=== PATIENT | female | born 2000 | race Caucasian/White ===

== ENCOUNTER 2025-03-04 22:11 | Inpatient (IN) | payer OTHER, MEDICAID, SELFPAY ==
[2025-03-04 22:18] VITALS: BP 131/73; PULSE 59; RESP 18; TEMP 36.4; O2SAT 98; BMI 46.5
[2025-03-04 22:29] VITALS: BP 133/74; PULSE 62; RESP 17; TEMP 36.6; O2SAT 100; BMI 46.6
--- NOTE | 2025-03-04 23:15 | ED.GENADULT ---
HPI - General Adult General Chief complaint: Psychiatric Symptoms Stated complaint: SI Time Seen by Provider: 03/04/25 22:29 Source: patient Limitations: no limitations History of Present Illness ED Provider: Amanda Clay PA-C HPI narrative: 25-year-old female with a history of autism spectrum disorder, ADHD, OCD, borderline personality disorder, anxiety, questionable bipolar disorder who is amidst further workup, presents with SI and HI. Patient is having transient thoughts of self-harm, she has no specific plan. She is also admitting to homicidal ideation ?toward anybody?. Patient states she just moved from [place], she is having insurance issues, she has had barriers to care, she has not been on her medications for the past 4 days. Denies use of alcohol or illicit substances, she does admit to using marijuana edibles. Related Data Home Medications ?Medication ?Instructions ?Recorded ?Confirmed amlodipine 2.5 mg tablet 2.5 mg PO DAILY 03/04/25 03/04/25 fluoxetine 20 mg capsule (Prozac) 20 mg PO DAILY 03/04/25 03/04/25 hydroxyzine pamoate 50 mg capsule 100 mg PO BEDTIME 03/04/25 03/05/25 quetiapine 50 mg tablet (Seroquel) 50 mg PO DAILY 03/04/25 03/04/25 calcium carbonate 500 mg PO TID 03/05/25 03/05/25 ferrous sulfate 325 mg (65 mg 325 mg PO DAILY@0800 03/05/25 03/05/25 iron) tablet mirtazapine 30 mg tablet 60 mg PO BEDTIME 03/05/25 03/05/25 multivitamin 1 tab PO DAILY@0800 03/05/25 03/05/25 norethindrone acetate 1.5 1 tab PO DAILY 03/05/25 03/05/25 mg-ethinyl estradiol 30 mcg tablet (Microgestin) pregabalin 75 mg capsule 75 mg PO BID 03/05/25 03/05/25 Allergies Allergy/AdvReac Type Severity Reaction Status Date / Time NSAIDS (Non-Steroidal Allergy Gastrointestinal Verified 03/04/25 22:38 Anti-Inflamma Upset amoxicillin AdvReac Anaphylaxis Verified 03/04/25 22:38 Penicillins (PCN) AdvReac Anaphylaxis Verified 03/04/25 22:38 Review of Systems Review of Systems: Yes all other systems are reviewed and are negative Constitutional: Constitutional: Denies fatigue and Denies fever(s) Cardiovascular: Cardiovascular: Denies chest pain and Denies dyspnea Respiratory: Respiratory: Denies dyspnea Gastrointestinal: Gastrointestinal: Denies abdominal pain Psychiatric: Psychiatric: Reports homicidal ideation and Reports suicidal ideation Endocrine: Endocrine: Denies fatigue PMF Past Medical History Attestation statement: The following information was validated with the patient. Social History Social History Household Members: Friend(s) Household Members Other:: 2 friends Housing: Apartment Do you presently have visiting nurse or other home services: No Patient Tobacco Use Status: Former Tobacco user Smoked in Last 30 Days: No e-Cigarette/Vaping Use: Never Used Patient Interested in Nicotine Replacement: No Use of substances other than those prescribed or required for medical reasons: Yes Substance Use Type: Marijuana Have you been hit, kicked, punched, or otherwise hurt by someone within the past year? If so, by whom?: No Do you feel safe in your current relationship?: Yes Is there a partner from a previous relationship who is making you feel unsafe now?: No Are you made to feel afraid or neglected: No Advance Directives: No Advance Directives Information Provided: Yes Do you have a plan to hurt others: No Plan Recently lost weight without trying: No Eating poorly because of decreased appetite: No Nutrition Risks: No Nutritional Risk Patient : No : No Poor oral hygiene: No Physical Exam ED Vital Signs: Vital Signs - 24 hr 03/04/25 22:18 03/04/25 22:29 03/05/25 05:55 Temperature 97.5 F 97.9 F Pulse Rate 59 62 Respiratory Rate 18 17 18 Blood Pressure 131/73 133/74 Pulse Oximetry 98 100 Oxygen Delivery Method Room Air Room Air Room Air 03/05/25 06:12 Temperature 98.3 F Pulse Rate 67 Respiratory Rate 16 Blood Pressure 107/50 L Pulse Oximetry 100 Oxygen Delivery Method Room Air BMI result Body Mass Index 46.6 Const Other: Alert well-appearing Orientation/consciousness: patient oriented x3 Resp Effort & Inspection: normal respiratory effort Cardio Other: Normal peripheral perfusion Skin Other: Warm dry no rash Neuro General: patient oriented x3, gait normal, no focal motor deficits and CN's II-XI intact bilaterally Psych Other: Cooperative Course Reevaluation(s) Reevaluation #1: Time: 23:31 Date: 03/04/25 Provider: YANIRA Mace Patient in physician observation for psychiatric evaluation.? No acute events reported overnight. No current complaints. VS stable.? Patient is in bed search status/pending CARE team evaluation. Will continue to monitor. Medications Administered Generic Name Dose Route Start Last Admin Trade Name Freq PRN Reason Stop Dose Admin Amlodipine Besylate 2.5 mg 03/05/25 09:00 03/05/25 08:55 Amlodipine Besylate 2.5 Mg Tablet PO 2.5 mg DAILY [facility] Administration Protocol Fluoxetine HCl 20 mg 03/05/25 09:00 03/05/25 08:55 Fluoxetine Hcl 20 Mg Capsule PO 20 mg On Hold: 03/05/25 17:36 DAILY [facility] Administration Comment: Order held by Process Transfer Quetiapine Fumarate 50 mg 03/05/25 09:00 03/05/25 08:56 Quetiapine Fumarate 50 Mg Tablet PO 50 mg DAILY [facility] Administration Discontinued Medications Generic Name Dose Route Start Last Admin Trade Name Freq PRN Reason Stop Dose Admin Acetaminophen 650 mg 03/05/25 10:39 03/05/25 10:49 Acetaminophen 325 Mg Tablet PO 03/05/25 10:40 650 mg ONCE ONE Administration Hydroxyzine HCl 100 mg 03/04/25 23:27 03/04/25 23:47 Hydroxyzine Hcl 50 Mg Tablet PO 03/04/25 23:28 100 mg ONCE ONE Administration Melatonin 9 mg 03/04/25 23:27 03/04/25 23:47 Melatonin 3 Mg Tablet PO 03/04/25 23:28 9 mg ONCE ONE Administration Pregabalin 25 mg 03/05/25 09:00 03/05/25 08:55 Pregabalin 25 Mg Capsule PO 25 mg DAILY [facility] Administration Medical Decision Making Medical Decision Making MDM Narrative: 25-year-old female with a history of autism spectrum disorder, ADHD, OCD, borderline personality disorder, anxiety, questionable bipolar disorder who is amidst further workup, presents with SI and HI. Patient is having transient thoughts of self-harm, she has no specific plan. She is also admitting to homicidal ideation ?toward anybody?. Patient states she just moved from [place], she is having insurance issues, she has had barriers to care, she has not been on her medications for the past 4 days. Denies use of alcohol or illicit substances, she does admit to using marijuana edibles. Problem: Psychiatric illness History: Per patient I have considered the following differential diagnoses: SI, HI, decompensated psychiatric illness, drug/alcohol intoxication Plan: Screening labs including serum ethanol and drug screen we will be obtained, I foresee the patient being a bed search given she requires medication that she is having barriers obtaining for herself, she is symptomatic. We will reach out to the care team. I have independently reviewed the following tests: Labs: No leukocytosis, not anemic, no electrolyte abnormality, ethanol less than 10, drug screen only positive for marijuana Differential Diagnosis Differential Diagnoses: The differential diagnosis associated with the presentation includes See medical decision-making Admission/Observation Consideration of admission/observation: Escalation of care including admission/observation considered Likely inpatient psych Consult Healthcare Provider Management of the patient was discussed with: Behavioral Health Provider Lab Data MDM Lab Attestation statement: I reviewed the patient's lab results. 03/04/25 23:21 03/04/25 23:21 Labs: Lab Results 03/04/25 03/05/25 Range/Units 23:21 00:08 WBC 7.2 (4.8-10.8) X10*3/uL RBC 4.74 (4.20-5.50) X10*6/uL Hgb 13.7 (12.0-16.0) g/dl Hct 41.5 (37.0-47.0) % MCV 87.6 (80.0-98.0) fL MCH 28.9 (27.0-33.0) pg MCHC 33.0 (31.0-35.0) g/dl RDW 13.1 (11.0-16.0) % Plt Count 250 (160-400) X10*3/uL MPV 9.9 (9.4-12.3) fL Immature Gran % (Auto) 0.3 (0.0-0.4) % Neut % (Auto) 47.6 (45-73) % Lymph % (Auto) 45.1 H (20-40) % [place] % (Auto) 6.0 (2-11) % Eos % (Auto) 0.6 (0-4) % Baso % (Auto) 0.4 (0-2) % Lymph # (Auto) 3.2 (1.2-4.9) X10*3/uL [place] # (Auto) 0.4 (0.1-1.2) X10*3/uL Eos # (Auto) 0.0 (0.0-0.4) X10*3/uL Baso # (Auto) 0.0 (0.0-0.2) X10*3/uL Abs Immat Gran (auto) 0.02 (0.00-0.03) X10*3/uL Absolute Neuts (auto) 3.4 (2.0-8.3) x10*3/uL Absolute Nucleated RBC 0.000 (0.0-0.012) X10*3/uL Nucleated RBC % (auto) 0.0 (0.0-0.2) /100WBC Sodium 141 (135-145) mmol/L Potassium 3.5 (3.3-5.1) mmol/L Chloride 109 H (96-108) mmol/L Carbon Dioxide 24 (22-29) mmol/L Anion Gap 12 (12-20) BUN 11 (9-16) mg/dL Creatinine 0.74 (0.5-1.4) mg/dL Estim Creat Clear Calc 182.0 Estimated GFR > 60 Random Glucose 105 (60-115) mg/dL Calcium 8.6 (8.4-10.2) mg/dL Total Bilirubin 0.3 (0.0-1.0) mg/dL AST 26 (5-31) U/L ALT 32 H (0-31) U/L Alkaline Phosphatase 93 (39-117) U/L Total Protein 6.3 L (6.5-8.0) g/dL Albumin 3.9 (3.5-5.0) g/dL Beta HCG, Quant < 2 mIU/mL Urine Color Dark Yellow Urine Appearance Cloudy Urine pH 5.5 (5.0-9.0) Ur Specific [place] >= 1.030 H (1.005-1.025) Urine Protein 30 (1+) H (Neg-Trace) mg/dL Urine Glucose (UA) Negative (Negative) mg/dL Urine Ketones Trace (Negative) mg/dL Urine Blood Negative (Negative) Urine Nitrite Negative (Negative) Ur Leukocyte Esterase Negative (Negative) Urine RBC 0-2 (0-2) /HPF Urine WBC 0-5 (0-5) /HPF Ur Squamous Epith Cells >20 (0-2) /HPF Calcium Oxalate Crystal Present Urine Bacteria 4+ (None Seen) Hyaline Casts 3-5 (0-2) /LPF Salicylates < 5.0 L (15-30) mg/dL Urine Opiates Screen Not Detected (Not Detect) Ur Buprenorphine Scrn Not Detected (Not Detect) ng/mL Ur Oxycodone Screen Not Detected (Not Detect) ng/mL Urine Methadone Screen Not Detected (Not Detect) ng/mL Urine Fentanyl Screen Not Detected (Not Detect) Acetaminophen 15 (<30) mcg/mL Ur Barbiturates Screen Not Detected (Not Detect) Ur Phencyclidine Scrn Not Detected (Not Detect) Ur Amphetamines Screen Not Detected (Not Detect) U Benzodiazepines Scrn Not Detected (Not Detect) Urine Cocaine Screen Not Detected (Not Detect) U Marijuana (THC) Screen POSITIVE H (Not Detect) Ethyl Alcohol < 10 mg/dL Discharge Plan Discharge Clinical Impression: Suicidal behavior Patient Disposition: Admitted As Inpatient Interventions: Admission Worksheet (ED) Last Done: 03/05/25 16:48 Discharge Date/Time: 03/05/25 16:55
[2025-03-04 23:31] LABS: MANUAL DIFF FLAG NO
[2025-03-04 23:32] LABS: Hematocrit 41.5 % (37.0-47.0); Hemoglobin 13.7 g/dl (12.0-16.0); Imm Gran Abs Auto 0.02 X10*3/uL (0.00-0.03); Imm Gran Pct Auto 0.3 % (0.0-0.4); Lymphocytes Absolute Auto 3.2 X10*3/uL (1.2-4.9); Mean Corpuscular HGB Conc 33.0 g/dl (31.0-35.0); Mean Corpuscular Hemoglobin 28.9 pg (27.0-33.0); Mean Corpuscular Volume 87.6 fL (80.0-98.0); NRBC Abs Auto 0.000 X10*3/uL (0.0-0.012); NRBC Pct Auto 0.0 /100WBC (0.0-0.2); Platelet Count 250 X10*3/uL (160-400); Red Blood Count 4.74 X10*6/uL (4.20-5.50); White Blood Count 7.2 X10*3/uL (4.8-10.8)
[2025-03-04 23:48] LABS: Albumin Level 3.9 g/dL (3.5-5.0); Alkaline Phosphatase 93 U/L (39-117); Anion Gap 12 (12-20); Aspartate Amino Transferase 26 U/L (5-31); Blood Urea Nitrogen 11 mg/dL (9-16); Calcium 8.6 mg/dL (8.4-10.2); Carbon Dioxide 24 mmol/L (22-29); Chloride 109 mmol/L (96-108); Creatinine Clr Calc Pharmacy 182.0; Estimated Glomerular Filt Rate > 60; Potassium 3.5 mmol/L (3.3-5.1); Sodium 141 mmol/L (135-145); Total Protein 6.3 g/dL (6.5-8.0)
[2025-03-04 23:49] LABS: Acetaminophen LAB 15 mcg/mL (<30); Salicylate < 5.0 mg/dL (15-30)
--- NOTE | 2025-03-04 23:49 | PC.NURSE ---
Per pt, she recently moved here from [place] and has had difficulty refilling her medications. Reports she hasn't been taking them for quite some time. She reports her roommates have noticed differences in her behavior; such as thinking there are cameras in the house, increased agitation, increased impulsively and an increase in her OCD sx. Patient reports since stopping her medications she's been experiencing highs and lows that she'll have uncontrollable laughing fits that end in tears with no apparent trigger. Tonight, patient reports she was in the kitchen with her roommates when she began to experience passive SI after seeing kitchen knives and feeling unsafe around them. Reports HX of SH such as biting her hands/picking her skin and describes these behaviors as her go-to coping skill . Endorses passive SI, no plan/intent. Feels safe on the unit. Endorses HI towards anyone , but states I don't want to hurt anybody. Denies current AVH, but states before arriving she experienced +AH of a phone ringing or hearing my fathers voice. Changed into appropriate attire. [address] checks in [address].
[2025-03-04 23:59] LABS: Alanine Aminotransferase 32 U/L (0-31)
[2025-03-05 00:32] LABS: Appearance Urine Cloudy; Glucose Urine UA Negative (Negative); PH 5.5 (5.0-9.0); Specific Gravity - Urine >= 1.030 (1.005-1.025); UMIC TRIGGER UACC YES
[2025-03-05 00:46] LABS: Cannabinoid Screen Urine POSITIVE (Not Detect)
[2025-03-05 05:55] VITALS: RESP 18
[2025-03-05 06:12] VITALS: BP 107/50; PULSE 67; RESP 16; TEMP 36.8; O2SAT 100
--- NOTE | 2025-03-05 07:19 | PC.NURSE ---
Assumed care of patient at 0645, patient appears to be in no apparent distress this am, resting in her room, calm and cooperative. Continue plan of care for CARE team assessment
--- NOTE | 2025-03-05 09:03 | MHC.CARE ---
Pt meets the criteria for IPLOC and will be a bed search. Section 12a in chart. ED provider in agreement with disposition.
--- NOTE | 2025-03-05 09:12 | MHC.CARE ---
T/W emailed financial services to meet with Pt.
--- NOTE | 2025-03-05 12:09 | PHA.MEDREC ---
Pharmacy Consult ? Medication Reconciliation Pharmacy has reviewed the medication reconciliation done by RN. Several discrepancies noticed. This [facility] [place] and [facility] in [place]. Patient is inbetween insurances and this is why claims are not showing. Also spoke to patient and patient was able to name medications, doses and frequencies with ease. Patient also mentioned she is on a multivitamin with iron and calcium TID. Patient did say its been roughly 1-3 weeks since shes last taken her medications due to lack of refills.
[2025-03-05 17:59] VITALS: BMI 46.5
[2025-03-05 18:00] VITALS: BP 113/68; PULSE 61; TEMP 36.6; O2SAT 99
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
[2025-03-05 19:56] VITALS: BP 131/98; PULSE 89; RESP 16; TEMP 36.6; O2SAT 99
[2025-03-05 20:00] VITALS: BP 131/98; PULSE 89; RESP 16; TEMP 36.6; O2SAT 99
--- NOTE | 2025-03-06 03:56 | PC.NURSE ---
Medications: Patient and RN discussed, the following, 1) Offered PM Flu Vaccine pt refused would like it in am. 2) Calcium added. MD ordered for TID 0900, 1500, 2100----Pt states Calcium needs to be taken 3 hours from the Fe which is scheduled for 0900. Pt requesting Ca be rescheduled TID at 12p, 1500 and 1800. 3)Pt had Mirtazapine 60mg ordered than put on Hold. Spoke to provider as pt states she cannot go without this medication. MD needed confirmation on dose, pt reports her psychiatrist is one of few that can dose her at 60mg and she has slowly tapered up and has been tolerating for 6 months. MD made aware and ordered. Pt received dose. 4) seroquell was changed from AM to PM dose. Estradiol is ordered, this is a NF in pharmacy. Spoke with pt about having medication brought in and states she will ask her roommate to do so. IN ADDITION TO THIS PT STATES SHE ALSO TAKE spironolactone 25MG IN AM WELL for PCOS.
[2025-03-06 08:00] VITALS: BP 131/72; PULSE 78; TEMP 36.4; TEMP 37.1; O2SAT 100
[2025-03-06 08:30] LABS: Alanine Aminotransferase 30 U/L (0-31); Albumin Level 4.2 g/dL (3.5-5.0); Alkaline Phosphatase 99 U/L (39-117); Anion Gap 12 (12-20); Aspartate Amino Transferase 24 U/L (5-31); Blood Urea Nitrogen 10 mg/dL (9-16); Calcium 9.2 mg/dL (8.4-10.2); Carbon Dioxide 25 mmol/L (22-29); Chloride 107 mmol/L (96-108); Cholesterol 172 mg/dL (<200); Creatinine Clr Calc Pharmacy 197.7; Estimated Glomerular Filt Rate > 60; HDL Cholesterol 52 mg/dL (>40); Potassium 3.5 mmol/L (3.3-5.1); Sodium 140 mmol/L (135-145); Total Protein 6.7 g/dL (6.5-8.0); Triglycerides 105 mg/dL (<150)
--- NOTE | 2025-03-06 08:30 | HO.PM.IMCN ---
History of Present Illness Data of Consult Service Date: 03/06/25 Primary Care Provider: None Physician HPI Reason for consult: Medical consult 25-year-old female with a past medical history of hypertension, fibromyalgia, autism spectrum disorder, ADHD, OCD, borderline personality disorder, anxiety, and possible bipolar disorder presents with suicidal and homicidal ideation. Initial workup with no leukocytosis, no anemia, no electrolyte imbalances and drug screen positive for marijuana. Urine negative for infection. She was evaluated by CARE team and found to be appropriate for psychiatric admission for treatment and HI. Patient had recent bypass surgery in September, lost 115 lb. On exam she is requesting Flexeril for her fibromyalgia pain. Her endocrinology appointment is pending. She otherwise has no concerns Review of Systems Review of Systems: Denies any shortness of breath, chest pain, headaches, dysuria, abdominal pain or discomfort, nausea, vomiting or diarrhea. Denies fever or chills. PMFSH Social History Household Members: Friend(s) Household Members Other:: 2 friends Housing: Apartment Do you presently have visiting nurse or other home services: No Patient Tobacco Use Status: Former Tobacco user Smoked in Last 30 Days: No e-Cigarette/Vaping Use: Never Used Patient Interested in Nicotine Replacement: No Use of substances other than those prescribed or required for medical reasons: Yes Substance Use Type: Marijuana Currently Displaying Signs/Symptoms of Drug Intoxication Withdrawal: No Have you been hit, kicked, punched, or otherwise hurt by someone within the past year? If so, by whom?: No Do you feel safe in your current relationship?: Yes Is there a partner from a previous relationship who is making you feel unsafe now?: No Are you made to feel afraid or neglected: No Advance Directives: No Advance Directives Information Provided: Yes Do you have thoughts of harming others: None Do you have a plan to hurt others: No Plan Recently lost weight without trying: No Eating poorly because of decreased appetite: No Nutrition Risks: No Nutritional Risk Patient : No : No Poor oral hygiene: No Meds Allergies Allergy/AdvReac Type Severity Reaction Status Date / Time NSAIDS (Non-Steroidal Allergy Gastrointestinal Verified 03/04/25 22:38 Anti-Inflamma Upset tree nut Allergy Anaphylaxis Verified 03/06/25 13:49 amoxicillin AdvReac Anaphylaxis Verified 03/04/25 22:38 lamotrigine AdvReac Anaphylaxis Verified 03/06/25 13:49 lithium AdvReac Anaphylaxis Verified 03/06/25 13:49 Penicillins (PCN) AdvReac Anaphylaxis Verified 03/04/25 22:38 Active Medications: Current Medications Acetaminophen (Acetaminophen 325 Mg Tablet) 650 mg PO Q6H PRN PRN Reason: Headache/Pain, Scale 1-10 [place] Hydroxide/Mg Hydroxide (Magnesium Hydrox/Alum Hydrox 30 Ml Oral.Susp) 30 ml PO Q6H PRN PRN Reason: Heartburn/Nausea Amlodipine Besylate (Amlodipine Besylate 2.5 Mg Tablet) 2.5 mg PO DAILY [facility]; Protocol Last Admin: 03/05/25 08:55 Dose: 2.5 mg Calcium Carbonate (Calcium Oyster Shell Elemental 500 Mg Tablet) 500 mg PO TID [facility] Last Admin: 03/05/25 22:16 Dose: Not Given Ferrous Sulfate (Ferrous Sulfate 324 Mg Tablet.) 324 mg PO DAILY [facility] Fluoxetine HCl (Fluoxetine Hcl 20 Mg Capsule) 20 mg PO DAILY [facility] On Hold: 03/05/25 17:36 Comment: Order held by Process Transfer Last Admin: 03/05/25 08:55 Dose: 20 mg Hydroxyzine HCl (Hydroxyzine Hcl 50 Mg Tablet) 100 mg PO BEDTIME [facility] Last Admin: 03/05/25 20:40 Dose: 100 mg Magnesium Hydroxide (Milk Of Magnesia 30 Ml Oral.Susp) 30 ml PO DAILY PRN PRN Reason: Constipation Melatonin (Melatonin 3 Mg Tablet) 9 mg PO BEDTIME [facility] Last Admin: 03/05/25 21:20 Dose: 9 mg Mirtazapine (Mirtazapine 30 Mg Tablet) 60 mg PO BEDTIME [facility] On Hold: 03/05/25 21:00 Comment: Order held by Process Transfer Mirtazapine (Mirtazapine 30 Mg Tablet) 60 mg PO BEDTIME [facility] Last Admin: 03/05/25 21:21 Dose: 60 mg Multivitamins/Vitamin C (Multivitamin Tablet) 1 tab PO DAILY [facility] Nicotine (Nicotine 21 Mg Patch.Td24) 21 mg TRANSDERMA DAILY PRN PRN Reason: smoking cessation Nicotine Polacrilex (Nicotine Polacrilex 2 Mg Gum) 4 mg BUCCAL Q2H PRN PRN Reason: Nicotine Cravings Non-Formulary Medication (Norethindrone Ac-Eth Estradiol [Microgestin 1.5 (21)]) 1 tab PO DAILY [facility] Olanzapine (Olanzapine 5 Mg Tablet) 5 mg PO TID PRN PRN Reason: agitation Pregabalin (Pregabalin 25 Mg Capsule) 75 mg PO BID [facility] Last Admin: 03/05/25 20:41 Dose: 75 mg Quetiapine Fumarate (Quetiapine Fumarate 50 Mg Tablet) 50 mg PO BEDTIME [facility] Last Admin: 03/05/25 21:22 Dose: 50 mg Trazodone HCl (Trazodone Hcl 50 Mg Tablet) 50 mg PO BEDTIME MRX1 PRN PRN Reason: Insomnia Home Medications ?Medication ?Instructions ?Recorded ?Confirmed ?Last Taken ?Type amlodipine 2.5 mg tablet 2.5 mg PO DAILY 03/04/25 03/04/25 3 Weeks Ago History ~02/12/25 fluoxetine 20 mg capsule (Prozac) 20 mg PO DAILY 03/04/25 03/04/25 3 Weeks Ago History ~02/12/25 hydroxyzine pamoate 50 mg capsule 100 mg PO BEDTIME 03/04/25 03/05/25 3 Weeks Ago History ~02/12/25 quetiapine 50 mg tablet (Seroquel) 50 mg PO DAILY 03/04/25 03/04/25 3 Weeks Ago History ~02/12/25 calcium carbonate 500 mg PO TID 03/05/25 03/05/25 3 Weeks Ago History ~02/12/25 ferrous sulfate 325 mg (65 mg 325 mg PO DAILY@0800 03/05/25 03/05/25 3 Weeks Ago History iron) tablet ~02/12/25 mirtazapine 30 mg tablet 60 mg PO BEDTIME 03/05/25 03/05/25 3 Weeks Ago History ~02/12/25 multivitamin 1 tab PO DAILY@0800 03/05/25 03/05/25 3 Weeks Ago History ~02/12/25 norethindrone acetate 1.5 1 tab PO DAILY 03/05/25 03/05/25 3 Weeks Ago History mg-ethinyl estradiol 30 mcg tablet ~02/12/25 (Microgestin) pregabalin 75 mg capsule 75 mg PO BID 03/05/25 03/05/25 3 Weeks Ago History ~02/12/25 Physical Exam Vital Signs and Narrative: Vital Signs: Last Vital Signs Temp 98 F 03/05/25 20:00 Pulse 89 03/05/25 20:00 Resp 16 03/05/25 20:00 BP 131/98 H 03/05/25 20:00 Pulse Ox 99 03/05/25 20:00 O2 Del Method Room Air 03/05/25 20:00 BMI result Body Mass Index 46.5 Alert and oriented X3, calm and cooperative. Answers questions. Neuro: CN II-X11 intact, no deficits, visual acuity intact EYES: PERRLA, EOM intact ENT: Hearing intact, MMM Cardiac: S1 S2 RRR, No ectopy Pulmonary: Lungs clear to auscultation, No increased WOB. Abdominal: BS active in all 4 quadrants, no guarding or tenderness MSK: Strength 5/5 upper and lower extremities : Deferred Extremities: No edema in lower extremities Psych: Mood stable, Quiet and cooperative. Skin: Warm and dry, Intact Results Labs 03/04/25 23:21 03/06/25 07:59 Labs: Laboratory Results - last 24 hr 03/06/25 07:59 Estimat Average Glucose 97 Hemoglobin A1c % 5.0 Assessment and Plan (1) HTN (hypertension): Status: Acute Plan 25-year-old female with a past medical history listed below presents to ED with suicidal and homicidal ideation. Patient was off of her meds for 4 days, now admitted for stabilization. ADHD/OCD/borderline personality disorder/autism spectrum disorder/anxiety/? bipolar disorder/SI/HI Treatment per psychiatric team Hypertension Continue amlodipine Fibromyalgia Patient takes Lyrica b.i.d. Flexeril t.i.d. p.r.n. Has an upcoming appointment with web design intern Recent gastric bypass surgery in September Labs within normal limits, continue multivitamin vitamin-C and calcium carbonate Thank you for allowing me to participate in the care of this patient. Will follow with you, please notify medical provider with any changes in condition or concerns.
[2025-03-06 09:03] VITALS: BP 138/72
[2025-03-06] MEDS: Calcium Oyster Shell Elemental 500 MG TABLET PO ×3 (09:03→22:45)
[2025-03-06] MEDS: Ferrous Sulfate 324 MG TABLET.DR PO (09:03)
--- NOTE | 2025-03-06 09:48 | HO.PSYADMNOT ---
HPI Date of Service: 03/06/25 Chief Complaint: SI/HI Sources of Information: patient interviewed, chart reviewed and crisis/core team assessment reviewed Additional Sources of Information: Met with pt 130pm HPI Subjective Notes: Gupta Warning and Conditional Voluntary Healthcare Proxy: No Guardianship: No Medical Problems Affecting Mental Status: No Narrative: 25 yo female, self presented to [facility] for re-establishment of psychotropic medications. Pt reports being without meds for 1.5 weeks. Reports paranoia, insomnia, irrational decision making and thoughts of self harm along with SI-tells CARE team of thoughts to slice her stomach. Also reports lability of mood-episodes of hysterical laughter/crying. HI+ without specific person-toward anyone. Hx of diagnosis of ADHD, ASD, Borderline Personality Disorder, Bipolar Disorder. Post neuropsychiatric exam in 2021 reports diagnosis of antisocial personality disorder/schizotypal personality disorder. 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 Pt reports she has been taking Mirtazapine 60 mg, Fluoxetine 20 mg and Quetiapine 50 mg with ongoing manic cycling. She reports sx of ADHD, intrusive OCD sx, excoriation/skin picking sx are all present when this regime is ongoing. States she moved to [place] at the end of December and has been attempting to secure insurance which has been a slowed process. She began to feel changes, however thought it may be her response to the seasonal changes. Symptoms increased she became more impulsive with tasks and purchases, she dyed her hair black, had changes in sleep (was sleeping 11pm-10am, now 4am-8am), poor appetite, poor self care, vivid intrusive thoughts to harm herself, bite herself, to cut her stomach, these becoming so prominent she would not allow herself in the kitchen as she worried she would stab herself. 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, diagnosed with borderline personality age 15, bipolar disorder age 18 Hx of residential treatment age 11-13- 6 months, post argument with mom, after a 3 month in pt, then 2 years of special schooling while living at home Hx of suicide attempts in youth, age 12 attempt to hang herself Hx of tylenol OD-reports no medical care post OD Hx of attempted hanging OP: None currently Trials: Risperdal, Klonopin, Wellbutrin, Ativan, Sertraline, Buspirone, Naltrexone, Lamictal, [place], Trileptal, Intuniv Medical Evaluation Reviewed: Yes [facility] Medical History (Updated 03/06/25 @ 20:11 by Dawn Mccabe, DIANA) Borderline personality disorder Excoriation (skin-picking) disorder Autism ADHD OCD (obsessive compulsive disorder) Bipolar disorder PTSD (post-traumatic stress disorder) Narrative: Fibromyalgia Narrative: Gastric Bypass Family History: schizophrenia, OCD, bipolar disorder, depression Social History: Raised in [place] with biological parents Father when pt was age 9. Pt lived with her mother and uncle. Only child. High school graduate Receives social security survivor benefits Has been homeless prior to moving to [place] Substance History: toxicology positive for cannabis Trauma History: loss of father Diagnostics Vital Signs (24Hr): Vital Signs - 24 hr 03/05/25 18:00 03/05/25 19:56 03/05/25 20:00 Temperature 97.8 F 98 F 98 F Pulse Rate 61 89 89 Respiratory Rate 16 16 Blood Pressure 113/68 131/98 H 131/98 H Pulse Oximetry 99 99 99 Oxygen Delivery Method Room Air Room Air Room Air 03/06/25 09:03 Temperature Pulse Rate Respiratory Rate Blood Pressure 138/72 Pulse Oximetry Oxygen Delivery Method BMI result Body Mass Index 46.5 Labs 03/04/25 23:21 03/06/25 07:59 Labs: Laboratory Results - last 48 hr 03/04/25 03/05/25 03/06/25 23:21 00:08 07:59 WBC 7.2 RBC 4.74 Hgb 13.7 Hct 41.5 MCV 87.6 MCH 28.9 MCHC 33.0 RDW 13.1 Plt Count 250 MPV 9.9 Immature Gran % (Auto) 0.3 Neut % (Auto) 47.6 Lymph % (Auto) 45.1 H Harding % (Auto) 6.0 Eos % (Auto) 0.6 Baso % (Auto) 0.4 Lymph # (Auto) 3.2 [place] # (Auto) 0.4 Eos # (Auto) 0.0 Baso # (Auto) 0.0 Abs Immat Gran (auto) 0.02 Absolute Neuts (auto) 3.4 Absolute Nucleated RBC 0.000 Nucleated RBC % (auto) 0.0 Sodium 141 140 Potassium 3.5 3.5 Chloride 109 H 107 Carbon Dioxide 24 25 Anion Gap 12 12 BUN 11 10 Creatinine 0.74 0.68 Estim Creat Clear Calc 182.0 197.7 Estimated GFR > 60 > 60 Random Glucose 105 98 Estimat Average Glucose 97 Hemoglobin A1c % 5.0 Calcium 8.6 9.2 D Total Bilirubin 0.3 0.6 AST 26 24 ALT 32 H 30 Alkaline Phosphatase 93 99 Total Protein 6.3 L 6.7 Albumin 3.9 4.2 Triglycerides 105 Cholesterol 172 LDL Cholesterol, Calc 99 HDL Cholesterol 52 TSH 2.71 Beta HCG, Quant < 2 Urine Color Dark Yellow Urine Appearance Cloudy Urine pH 5.5 Ur Specific [place] >= 1.030 H Urine Protein 30 (1+) H Urine Glucose (UA) Negative Urine Ketones Trace Urine Blood Negative Urine Nitrite Negative Ur Leukocyte Esterase Negative Urine RBC 0-2 Urine WBC 0-5 Ur Squamous Epith Cells >20 Calcium Oxalate Crystal Present Urine Bacteria 4+ Hyaline Casts 3-5 Salicylates < 5.0 L Urine Opiates Screen Not Detected Ur Buprenorphine Scrn Not Detected Ur Oxycodone Screen Not Detected Urine Methadone Screen Not Detected Urine Fentanyl Screen Not Detected Acetaminophen 15 Ur Barbiturates Screen Not Detected Ur Phencyclidine Scrn Not Detected Ur Amphetamines Screen Not Detected U Benzodiazepines Scrn Not Detected Urine Cocaine Screen Not Detected U Marijuana (THC) Screen POSITIVE H Ethyl Alcohol < 10 Meds/Allergies Meds Home Medications ?Medication ?Instructions ?Recorded ?Confirmed ?Type amlodipine 2.5 mg tablet 2.5 mg PO DAILY 03/04/25 03/04/25 History fluoxetine 20 mg capsule (Prozac) 20 mg PO DAILY 03/04/25 03/04/25 History hydroxyzine pamoate 50 mg capsule 100 mg PO BEDTIME 03/04/25 03/05/25 History quetiapine 50 mg tablet (Seroquel) 50 mg PO DAILY 03/04/25 03/04/25 History calcium carbonate 500 mg PO TID 03/05/25 03/05/25 History ferrous sulfate 325 mg (65 mg 325 mg PO DAILY@0800 03/05/25 03/05/25 History iron) tablet mirtazapine 30 mg tablet 60 mg PO BEDTIME 03/05/25 03/05/25 History multivitamin 1 tab PO DAILY@0800 03/05/25 03/05/25 History norethindrone acetate 1.5 1 tab PO DAILY 03/05/25 03/05/25 History mg-ethinyl estradiol 30 mcg tablet (Microgestin) pregabalin 75 mg capsule 75 mg PO BID 03/05/25 03/05/25 History Allergies Allergies Allergy/AdvReac Type Severity Reaction Status Date / Time NSAIDS (Non-Steroidal Allergy Gastrointestinal Verified 03/04/25 22:38 Anti-Inflamma Upset tree nut Allergy Anaphylaxis Verified 03/06/25 13:49 amoxicillin AdvReac Anaphylaxis Verified 03/04/25 22:38 lamotrigine AdvReac Anaphylaxis Verified 03/06/25 13:49 lithium AdvReac Anaphylaxis Verified 03/06/25 13:49 Penicillins (PCN) AdvReac Anaphylaxis Verified 03/04/25 22:38 Assessment & Plan Assessment & Plan (1) PTSD (post-traumatic stress disorder): Status: Acute Code(s): F43.10 - Post-traumatic stress disorder, unspecified (2) Bipolar disorder: Status: Acute Code(s): F31.9 - Bipolar disorder, unspecified (3) OCD (obsessive compulsive disorder): Status: Acute Code(s): F42.9 - Obsessive-compulsive disorder, unspecified (4) ADHD: Status: Acute Code(s): F90.9 - Attention-deficit hyperactivity disorder, unspecified type (5) Autism: Status: Acute Code(s): F84.0 - Autistic disorder (6) Excoriation (skin-picking) disorder: Status: Acute Code(s): F42.4 - Excoriation (skin-picking) disorder (7) Borderline personality disorder: Status: Acute Code(s): F60.3 - Borderline personality disorder Plan 25 yo female, self presented to [facility] for re-establishment of psychotropic medications. Pt reports being without meds for 1.5 weeks. Reports paranoia, insomnia, irrational decision making and thoughts of self harm along with SI-tells CARE team of thoughts to slice her stomach. Also reports lability of mood-episodes of hysterical laughter/crying. HI+ without specific person-toward anyone. Hx of diagnosis of ADHD, ASD, Borderline Personality Disorder, Bipolar Disorder. Post neuropsychiatric exam in 2021 reports diagnosis of antisocial personality disorder/schizotypal personality disorder. 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 Pt reports she has been taking Mirtazapine 60 mg, Fluoxetine 20 mg and Quetiapine 50 mg with ongoing manic cycling. She reports sx of ADHD, intrusive OCD sx, excoriation/skin picking sx are all present when this regime is ongoing. States she moved to [place] at the end of December and has been attempting to secure insurance which has been a slowed process. She began to feel changes, however thought it may be her response to the seasonal changes. Symptoms increased she became more impulsive with tasks and purchases, she dyed her hair black, had changes in sleep (was sleeping 11pm-10am, now 4am-8am), poor appetite, poor self care, vivid intrusive thoughts to harm herself, bite herself, to cut her stomach, these becoming so prominent she would not allow herself in the kitchen as she worried she would stab herself. Plan: Admit, CV, 15 minute checks Encourage milieu participation Diagnostics as needed Collateral contact Continue current regime Olanzapine 5 mg HS trial for mood, excoriation sx Discharge planning Patient educated on: medication risk/benefits and therapeutic strategies Reason for continued inpatient stay Substantial Risk for: harm to self and rapid decompensation Statement Statement: I have reviewed the history and physical and performed a pertinent examination on my patient. No changes have occurred unless specified. If the History and Physical was not performed prior to admission, the Hospitalist's service will be consulted for completing the admission physical. Time Spent With Patient Time: Total time managing care of this patient today ____ minutes.
[2025-03-06 19:13] VITALS: BP 123/58; PULSE 76; RESP 16; TEMP 36.4; O2SAT 100
[2025-03-07 08:00] VITALS: BP 119/69; PULSE 60; RESP 16; TEMP 36.3; O2SAT 99
[2025-03-07 08:53] VITALS: BP 119/69
[2025-03-07] MEDS: Ferrous Sulfate 324 MG TABLET.DR PO (08:53)
--- NOTE | 2025-03-07 10:58 | HO.PSYCHPN ---
Subjective Subjective Date of Service: 03/07/25 Reason For Visit: SI/HI Subjective Notes: Conditional Voluntary Healthcare Proxy: No Guardianship: No Medical Problems Affecting Mental Status: No Interim History: Tolerating Olanzapine. Review of medicines, times and changes made in vitamin timing of dosages. Visable in milieu and with select peers. Discussed discharge for the end of the week. Denies SI,HI,AH,VH. No sx of acute monae or psychosis. Medication Compliance: Yes Side effects from medications: No Attending Groups: Yes Review of Systems Acute medical concerns: No Medical Review of Systems: unchanged Review of Systems Review of Systems will have a flu shot today Yes all other systems are reviewed and are negative Mental Status Exam Mental Status Exam Patient Appearance: Appropriate Patient Orientation: Person, Place, Time and Situation Level of Consciousness: Alert Patient Behavior: Appropriate, Talkative, Cooperative and Good Eye Contact Mood Description: Apprehensive Affect Description: Apprehensive Patient Cognition Impaired: No Ability to Follow Directions: Good Speech Pattern: Spontaneous Speech Memory Description: Intact Hallucinations: None Delusions: Not Present Thought Process: Intact and Goal Oriented Thought Content: positive for Intact, positive for Goal Oriented and positive for Suicidal Ideation (denies) Depressive Symptoms: Thoughts of /Suicide (denies) Judgement: Good Diagnostics Vital Signs (24Hr): Vital Signs - 24 hr 03/06/25 19:13 03/07/25 08:00 03/07/25 08:53 Temperature 97.5 F 97.4 F Pulse Rate 76 60 Respiratory Rate 16 16 Blood Pressure 123/58 L 119/69 119/69 Pulse Oximetry 100 99 Oxygen Delivery Method Room Air Room Air BMI result Body Mass Index 46.5 Labs 03/04/25 23:21 03/06/25 07:59 Labs: Laboratory Results - last 48 hr 03/06/25 07:59 Sodium 140 Potassium 3.5 Chloride 107 Carbon Dioxide 25 Anion Gap 12 BUN 10 Creatinine 0.68 Estim Creat Clear Calc 197.7 Estimated GFR > 60 Random Glucose 98 Estimat Average Glucose 97 Hemoglobin A1c % 5.0 Calcium 9.2 D Total Bilirubin 0.6 AST 24 ALT 30 Alkaline Phosphatase 99 Total Protein 6.7 Albumin 4.2 Triglycerides 105 Cholesterol 172 LDL Cholesterol, Calc 99 HDL Cholesterol 52 TSH 2.71 Medications Medications Current Medications Acetaminophen (Acetaminophen 325 Mg Tablet) 650 mg PO Q6H PRN PRN Reason: Headache/Pain, Scale 1-10 Last Admin: 03/06/25 09:04 Dose: 650 mg Al Hydroxide/Mg Hydroxide (Magnesium Hydrox/Alum Hydrox 30 Ml Oral.Susp) 30 ml PO Q6H PRN PRN Reason: Heartburn/Nausea Amlodipine Besylate (Amlodipine Besylate 2.5 Mg Tablet) 2.5 mg PO DAILY [facility]; Protocol Last Admin: 03/07/25 08:53 Dose: 2.5 mg Calcium Carbonate (Calcium Oyster Shell Elemental 500 Mg Tablet) 500 mg PO TID [facility] Last Admin: 03/06/25 22:45 Dose: 500 mg Ferrous Sulfate (Ferrous Sulfate 324 Mg Tablet.Dr) 324 mg PO DAILY [facility] Last Admin: 03/07/25 08:53 Dose: 324 mg Fluoxetine HCl (Fluoxetine Hcl 20 Mg Capsule) 20 mg PO DAILY [facility] On Hold: 03/05/25 17:36 Comment: Order held by Process Transfer Last Admin: 03/05/25 08:55 Dose: 20 mg Hydroxyzine HCl (Hydroxyzine Hcl 50 Mg Tablet) 100 mg PO BEDTIME [facility] Last Admin: 03/06/25 22:44 Dose: 100 mg Magnesium Hydroxide (Milk Of Magnesia 30 Ml Oral.Susp) 30 ml PO DAILY PRN PRN Reason: Constipation Melatonin (Melatonin 3 Mg Tablet) 9 mg PO BEDTIME [facility] Last Admin: 03/06/25 22:44 Dose: 9 mg Mirtazapine (Mirtazapine 30 Mg Tablet) 60 mg PO BEDTIME [facility] Last Admin: 03/06/25 22:46 Dose: 60 mg Multivitamins/Vitamin C (Multivitamin Tablet) 1 tab PO DAILY [facility] Last Admin: 03/07/25 08:53 Dose: 1 tab Nicotine (Nicotine 21 Mg Patch.Td24) 21 mg TRANSDERMA DAILY PRN PRN Reason: smoking cessation Nicotine Polacrilex (Nicotine Polacrilex 2 Mg Gum) 4 mg BUCCAL Q2H PRN PRN Reason: Nicotine Cravings Non-Formulary Medication (Norethindrone Ac-Eth Estradiol [Microgestin 1.09/30 (21)]) 1 tab PO DAILY [facility] Olanzapine (Olanzapine 5 Mg Tablet) 5 mg PO TID PRN PRN Reason: agitation Olanzapine (Olanzapine 5 Mg Tablet) 5 mg PO BEDTIME [facility] Last Admin: 03/06/25 22:45 Dose: 5 mg Pregabalin (Pregabalin 25 Mg Capsule) 75 mg PO BID [facility] Last Admin: 03/07/25 08:52 Dose: 75 mg Quetiapine Fumarate (Quetiapine Fumarate 50 Mg Tablet) 50 mg PO BEDTIME [facility] Last Admin: 03/06/25 22:45 Dose: 50 mg Trazodone HCl (Trazodone Hcl 50 Mg Tablet) 50 mg PO BEDTIME MRX1 PRN PRN Reason: Insomnia Allergies Allergies Allergy/AdvReac Type Severity Reaction Status Date / Time NSAIDS (Non-Steroidal Allergy Gastrointestinal Verified 03/04/25 22:38 Anti-Inflamma Upset tree nut Allergy Anaphylaxis Verified 03/06/25 13:49 amoxicillin AdvReac Anaphylaxis Verified 03/04/25 22:38 lamotrigine AdvReac Anaphylaxis Verified 03/06/25 13:49 lithium AdvReac Anaphylaxis Verified 03/06/25 13:49 Penicillins (PCN) AdvReac Anaphylaxis Verified 03/04/25 22:38 Assessment & Plan Assessment & Plan (1) PTSD (post-traumatic stress disorder): Status: Acute Code(s): F43.10 - Post-traumatic stress disorder, unspecified (2) Bipolar disorder: Status: Acute Code(s): F31.9 - Bipolar disorder, unspecified (3) OCD (obsessive compulsive disorder): Status: Acute Code(s): F42.9 - Obsessive-compulsive disorder, unspecified (4) ADHD: Status: Acute Code(s): F90.9 - Attention-deficit hyperactivity disorder, unspecified type (5) Autism: Status: Acute Code(s): F84.0 - Autistic disorder (6) Excoriation (skin-picking) disorder: Status: Acute Code(s): F42.4 - Excoriation (skin-picking) disorder (7) Borderline personality disorder: Status: Acute Code(s): F60.3 - Borderline personality disorder Plan 25 yo female, self presented to [facility] for re-establishment of psychotropic medications. Pt reports being without meds for 1.5 weeks. Reports paranoia, insomnia, irrational decision making and thoughts of self harm along with SI-tells CARE team of thoughts to slice her stomach. Also reports lability of mood-episodes of hysterical laughter/crying. HI+ without specific person-toward anyone. Hx of diagnosis of ADHD, ASD, Borderline Personality Disorder, Bipolar Disorder. Post neuropsychiatric exam in 2021 reports diagnosis of antisocial personality disorder/schizotypal personality disorder. 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 Pt reports she has been taking Mirtazapine 60 mg, Fluoxetine 20 mg and Quetiapine 50 mg with ongoing manic cycling. She reports sx of ADHD, intrusive OCD sx, excoriation/skin picking sx are all present when this regime is ongoing. States she moved to [place] at the end of December and has been attempting to secure insurance which has been a slowed process. She began to feel changes, however thought it may be her response to the seasonal changes. Symptoms increased she became more impulsive with tasks and purchases, she dyed her hair black, had changes in sleep (was sleeping 11pm-10am, now 4am-8am), poor appetite, poor self care, vivid intrusive thoughts to harm herself, bite herself, to cut her stomach, these becoming so prominent she would not allow herself in the kitchen as she worried she would stab herself. 03/07: Continue regime Flu shot today Discharge planning. Plan: Admit, CV, 15 minute checks Encourage milieu participation Diagnostics as needed Collateral contact Continue current regime Olanzapine 5 mg HS trial for mood, excoriation sx Discharge planning Reason for continued inpatient stay Substantial Risk for: rapid decompensation Time Spent With Patient Time: Total time managing care of this patient today ____ minutes.
[2025-03-07] MEDS: Calcium Oyster Shell Elemental 500 MG TABLET PO ×2 (12:43→21:27)
[2025-03-07] MEDS: Flu Vacc TS2025-26(6mo up)/PF 0.5 ML SYRINGE IM (12:46)
[2025-03-07 20:00] VITALS: BP 124/68; PULSE 86; TEMP 36.4; O2SAT 98
[2025-03-08 08:01] VITALS: BP 122/75; PULSE 75; TEMP 36.3; O2SAT 100
--- NOTE | 2025-03-08 09:11 | HO.PSYCHPN ---
Subjective Subjective Date of Service: 03/08/25 Reason For Visit: SI/HI Subjective Notes: Conditional Voluntary Healthcare Proxy: No Guardianship: No Medical Problems Affecting Mental Status: No Interim History: Pt discussed diagnosis-reviewed bipolar mood disorder, PTSD, Borderline Personality. Reports olanzapine helps her to concentrate and helps her thoughts to clear. She discussed increasing from 5 mg to 10 mg. She is looking forward to [facility] and to beginning her life in [place] and attending [employer]. Denies SI,HI,AH, VH. No sx of acute monae or psychosis-attending groups and interacting with select peers. Medication Compliance: Yes Side effects from medications: No Attending Groups: Yes Review of Systems Acute medical concerns: No Medical Review of Systems: unchanged Review of Systems Review of Systems Denies Mental Status Exam Mental Status Exam Patient Appearance: Appropriate Patient Orientation: Person, Place, Time and Situation Level of Consciousness: Alert Patient Behavior: Appropriate, Talkative, Cooperative and Good Eye Contact Mood Description: Apprehensive Affect Description: Apprehensive Patient Cognition Impaired: No Ability to Follow Directions: Good Speech Pattern: Spontaneous Speech Memory Description: Intact Hallucinations: None Delusions: Not Present Thought Process: Intact and Goal Oriented Thought Content: positive for Intact, positive for Goal Oriented and positive for Suicidal Ideation (denies) Depressive Symptoms: Thoughts of /Suicide (denies) Judgement: Good Diagnostics Vital Signs (24Hr): Vital Signs - 24 hr 03/07/25 20:00 03/08/25 08:01 Temperature 97.6 F 97.3 F Pulse Rate 86 75 Blood Pressure 124/68 122/75 Pulse Oximetry 98 100 Oxygen Delivery Method Room Air Room Air BMI result Body Mass Index 46.5 Labs 03/04/25 23:21 03/06/25 07:59 Medications Medications Current Medications Acetaminophen (Acetaminophen 325 Mg Tablet) 650 mg PO Q6H PRN PRN Reason: Headache/Pain, Scale 1-10 Last Admin: 03/07/25 21:29 Dose: 650 mg Al Hydroxide/Mg Hydroxide (Magnesium Hydrox/Alum Hydrox 30 Ml Oral.Susp) 30 ml PO Q6H PRN PRN Reason: Heartburn/Nausea Amlodipine Besylate (Amlodipine Besylate 2.5 Mg Tablet) 2.5 mg PO DAILY [facility]; Protocol Last Admin: 03/07/25 08:53 Dose: 2.5 mg Calcium Carbonate (Calcium Oyster Shell Elemental 500 Mg Tablet) 500 mg PO 0900,1500,2100 [facility] Last Admin: 03/07/25 21:27 Dose: 500 mg Cyclobenzaprine HCl (Cyclobenzaprine Hcl 10 Mg Tablet) 10 mg PO TID PRN PRN Reason: Fibromyalgia Last Admin: 03/07/25 17:12 Dose: 10 mg Ferrous Sulfate (Ferrous Sulfate 324 Mg Tablet.Dr) 324 mg PO 1200 [facility] Last Admin: 03/07/25 12:46 Dose: Not Given Fluoxetine HCl (Fluoxetine Hcl 20 Mg Capsule) 20 mg PO DAILY [facility] Last Admin: 03/07/25 12:43 Dose: 20 mg Hydroxyzine HCl (Hydroxyzine Hcl 50 Mg Tablet) 100 mg PO BEDTIME [facility] Last Admin: 03/07/25 21:23 Dose: 100 mg Magnesium Hydroxide (Milk Of Magnesia 30 Ml Oral.Susp) 30 ml PO DAILY PRN PRN Reason: Constipation Melatonin (Melatonin 3 Mg Tablet) 9 mg PO BEDTIME [facility] Last Admin: 03/07/25 21:24 Dose: 9 mg Mirtazapine (Mirtazapine 30 Mg Tablet) 60 mg PO BEDTIME [facility] Last Admin: 03/07/25 21:23 Dose: 60 mg Multivitamins/Vitamin C (Multivitamin Tablet) 1 tab PO 1200 [facility] Last Admin: 03/07/25 12:46 Dose: Not Given Nicotine (Nicotine 21 Mg Patch.Td24) 21 mg TRANSDERMA DAILY PRN PRN Reason: smoking cessation Nicotine Polacrilex (Nicotine Polacrilex 2 Mg Gum) 4 mg BUCCAL Q2H PRN PRN Reason: Nicotine Cravings Non-Formulary Medication (Norethindrone Ac-Eth Estradiol [Microgestin 1.5/30 (21)]) 1 tab PO DAILY [facility] Olanzapine (Olanzapine 5 Mg Tablet) 5 mg PO TID PRN PRN Reason: agitation Olanzapine (Olanzapine 5 Mg Tablet) 5 mg PO BEDTIME [facility] Last Admin: 03/07/25 21:23 Dose: 5 mg Pregabalin (Pregabalin 25 Mg Capsule) 75 mg PO BID [facility] Last Admin: 03/07/25 21:24 Dose: 75 mg Quetiapine Fumarate (Quetiapine Fumarate 50 Mg Tablet) 50 mg PO BEDTIME [facility] Last Admin: 03/07/25 21:24 Dose: 50 mg Trazodone HCl (Trazodone Hcl 50 Mg Tablet) 50 mg PO BEDTIME MRX1 PRN PRN Reason: Insomnia Allergies Allergies Allergy/AdvReac Type Severity Reaction Status Date / Time NSAIDS (Non-Steroidal Allergy Gastrointestinal Verified 03/04/25 22:38 Anti-Inflamma Upset tree nut Allergy Anaphylaxis Verified 03/06/25 13:49 amoxicillin AdvReac Anaphylaxis Verified 03/04/25 22:38 lamotrigine AdvReac Anaphylaxis Verified 03/06/25 13:49 lithium AdvReac Anaphylaxis Verified 03/06/25 13:49 Penicillins (PCN) AdvReac Anaphylaxis Verified 03/04/25 22:38 Assessment & Plan Assessment & Plan (1) PTSD (post-traumatic stress disorder): Status: Acute Code(s): F43.10 - Post-traumatic stress disorder, unspecified (2) Bipolar disorder: Status: Acute Code(s): F31.9 - Bipolar disorder, unspecified (3) OCD (obsessive compulsive disorder): Status: Acute Code(s): F42.9 - Obsessive-compulsive disorder, unspecified (4) ADHD: Status: Acute Code(s): F90.9 - Attention-deficit hyperactivity disorder, unspecified type (5) Autism: Status: Acute Code(s): F84.0 - Autistic disorder (6) Excoriation (skin-picking) disorder: Status: Acute Code(s): F42.4 - Excoriation (skin-picking) disorder (7) Borderline personality disorder: Status: Acute Code(s): F60.3 - Borderline personality disorder Plan 25 yo female, self presented to [facility] for re-establishment of psychotropic medications. Pt reports being without meds for 1.5 weeks. Reports paranoia, insomnia, irrational decision making and thoughts of self harm along with SI-tells CARE team of thoughts to slice her stomach. Also reports lability of mood-episodes of hysterical laughter/crying. HI+ without specific person-toward anyone. Hx of diagnosis of ADHD, ASD, Borderline Personality Disorder, Bipolar Disorder. Post neuropsychiatric exam in 2021 reports diagnosis of antisocial personality disorder/schizotypal personality disorder. 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 Pt reports she has been taking Mirtazapine 60 mg, Fluoxetine 20 mg and Quetiapine 50 mg with ongoing manic cycling. She reports sx of ADHD, intrusive OCD sx, excoriation/skin picking sx are all present when this regime is ongoing. States she moved to [place] at the end of December and has been attempting to secure insurance which has been a slowed process. She began to feel changes, however thought it may be her response to the seasonal changes. Symptoms increased she became more impulsive with tasks and purchases, she dyed her hair black, had changes in sleep (was sleeping 11pm-10am, now 4am-8am), poor appetite, poor self care, vivid intrusive thoughts to harm herself, bite herself, to cut her stomach, these becoming so prominent she would not allow herself in the kitchen as she worried she would stab herself. 03/07: Continue regime Flu shot today Discharge planning. 03/08: Increase Olanzapine to 10 mg DC 03/10. Plan: Admit, CV, 15 minute checks Encourage milieu participation Diagnostics as needed Collateral contact Continue current regime Olanzapine 5 mg HS trial for mood, excoriation sx Discharge planning Reason for continued inpatient stay Substantial Risk for: stable for discharge Time Spent With Patient Time: Total time managing care of this patient today ____ minutes.
[2025-03-08 09:12] VITALS: BP 120/78
[2025-03-08] MEDS: Calcium Oyster Shell Elemental 500 MG TABLET PO ×2 (09:34→14:58)
[2025-03-08] MEDS: Milk of Magnesia 30 ML ORAL.SUSP PO (09:36)
[2025-03-08] MEDS: Ferrous Sulfate 324 MG TABLET.DR PO (12:29)
[2025-03-08 20:00] VITALS: BP 128/66; PULSE 67; RESP 16; TEMP 36.8; O2SAT 99
[2025-03-09 07:00] VITALS: BMI 46.8
[2025-03-09 08:00] VITALS: BP 131/56; PULSE 78; TEMP 35.9; O2SAT 100
[2025-03-09] MEDS: Calcium Oyster Shell Elemental 500 MG TABLET PO ×3 (09:00→21:37)
[2025-03-09] MEDS: Ferrous Sulfate 324 MG TABLET.DR PO (12:40)
--- NOTE | 2025-03-09 16:41 | P.PNPSI_ITS ---
Subjective Subjective Date of Service: 03/09/25 Reason For Visit: SI/HI Subjective Notes: Conditional Voluntary Healthcare Proxy: No Guardianship: No Medical Problems Affecting Mental Status: No Interim History: Tolerated increased dose of Olanzapine. I feel like I can approach others and it is easier, my thoughts do not race. Reviewed again diagnoses today. Pt feeling prepared to discharge and begin PHP. Denies SI,HI, AH,VH. No sx of acute monae or psychosis. She reports feeling improved today. Medication Compliance: Yes Side effects from medications: No Attending Groups: Yes Review of Systems Acute medical concerns: No Medical Review of Systems: unchanged Review of Systems Review of Systems Denies Mental Status Exam Mental Status Exam Patient Appearance: Appropriate Patient Orientation: Person, Place, Time and Situation Level of Consciousness: Alert Patient Behavior: Appropriate, Talkative, Cooperative and Good Eye Contact Mood Description: Appropriate Affect Description: Appropriate Patient Cognition Impaired: No Ability to Follow Directions: Good Speech Pattern: Spontaneous Speech Memory Description: Intact Hallucinations: None Delusions: Not Present Thought Process: Intact and Goal Oriented Thought Content: positive for Intact, positive for Goal Oriented and positive for Suicidal Ideation (denies) Depressive Symptoms: Thoughts of /Suicide (denies) Judgement: Good Diagnostics Vital Signs (24Hr): Vital Signs - 24 hr 03/08/25 20:00 03/09/25 08:00 Temperature 98.2 F 96.7 F L Pulse Rate 67 78 Respiratory Rate 16 Blood Pressure 128/66 131/56 L Pulse Oximetry 99 100 Oxygen Delivery Method Room Air Room Air BMI result Body Mass Index 46.8 Labs 03/04/25 23:21 03/06/25 07:59 Medications Medications Current Medications Acetaminophen (Acetaminophen 325 Mg Tablet) 650 mg PO Q6H PRN PRN Reason: Headache/Pain, Scale 1-10 Last Admin: 03/09/25 15:46 Dose: 650 mg Al Hydroxide/Mg Hydroxide (Magnesium Hydrox/Alum Hydrox 30 Ml Oral.Susp) 30 ml PO Q6H PRN PRN Reason: Heartburn/Nausea Amlodipine Besylate (Amlodipine Besylate 2.5 Mg Tablet) 2.5 mg PO DAILY [facility]; Protocol Last Admin: 03/09/25 08:55 Dose: 2.5 mg Calcium Carbonate (Calcium Oyster Shell Elemental 500 Mg Tablet) 500 mg PO 0900,1500,2100 [facility] Last Admin: 03/09/25 15:39 Dose: 500 mg Cyclobenzaprine HCl (Cyclobenzaprine Hcl 10 Mg Tablet) 10 mg PO TID PRN PRN Reason: Fibromyalgia Last Admin: 03/09/25 15:46 Dose: 10 mg Ferrous Sulfate (Ferrous Sulfate 324 Mg Tablet.Dr) 324 mg PO 1200 [facility] Last Admin: 03/09/25 12:40 Dose: 324 mg Fluoxetine HCl (Fluoxetine Hcl 20 Mg Capsule) 20 mg PO DAILY [facility] Last Admin: 03/09/25 08:55 Dose: 20 mg Hydroxyzine HCl (Hydroxyzine Hcl 50 Mg Tablet) 100 mg PO BEDTIME [facility] Last Admin: 03/08/25 21:17 Dose: 100 mg Magnesium Hydroxide (Milk Of Magnesia 30 Ml Oral.Susp) 30 ml PO DAILY PRN PRN Reason: Constipation Last Admin: 03/08/25 09:36 Dose: 30 ml Melatonin (Melatonin 3 Mg Tablet) 9 mg PO BEDTIME [facility] Last Admin: 03/08/25 21:52 Dose: 9 mg Mirtazapine (Mirtazapine 30 Mg Tablet) 60 mg PO BEDTIME [facility] Last Admin: 03/08/25 21:17 Dose: 60 mg Multivitamins/Vitamin C (Multivitamin Tablet) 1 tab PO 1200 [facility] Last Admin: 03/09/25 12:40 Dose: 1 tab Nicotine (Nicotine 21 Mg Patch.Td24) 21 mg TRANSDERMA DAILY PRN PRN Reason: smoking cessation Nicotine Polacrilex (Nicotine Polacrilex 2 Mg Gum) 4 mg BUCCAL Q2H PRN PRN Reason: Nicotine Cravings Non-Formulary Medication (Norethindrone Ac-Eth Estradiol [Microgestin 1.5/30 (21)]) 1 tab PO DAILY [facility] Olanzapine (Olanzapine 5 Mg Tablet) 5 mg PO TID PRN PRN Reason: agitation Olanzapine (Olanzapine 10 Mg Tablet) 10 mg PO BEDTIME [facility] Last Admin: 03/08/25 21:16 Dose: 10 mg Pregabalin (Pregabalin 25 Mg Capsule) 75 mg PO BID [facility] Last Admin: 03/09/25 08:55 Dose: 75 mg Quetiapine Fumarate (Quetiapine Fumarate 50 Mg Tablet) 50 mg PO BEDTIME [facility] Last Admin: 03/08/25 21:17 Dose: 50 mg Trazodone HCl (Trazodone Hcl 50 Mg Tablet) 50 mg PO BEDTIME MRX1 PRN PRN Reason: Insomnia Allergies Allergies Allergy/AdvReac Type Severity Reaction Status Date / Time NSAIDS (Non-Steroidal Allergy Gastrointestinal Verified 03/04/25 22:38 Anti-Inflamma Upset tree nut Allergy Anaphylaxis Verified 03/06/25 13:49 amoxicillin AdvReac Anaphylaxis Verified 03/04/25 22:38 lamotrigine AdvReac Anaphylaxis Verified 03/06/25 13:49 lithium AdvReac Anaphylaxis Verified 03/06/25 13:49 Penicillins (PCN) AdvReac Anaphylaxis Verified 03/04/25 22:38 Assessment & Plan Assessment & Plan (1) PTSD (post-traumatic stress disorder): Status: Acute Code(s): F43.10 - Post-traumatic stress disorder, unspecified (2) Bipolar disorder: Status: Acute Code(s): F31.9 - Bipolar disorder, unspecified (3) OCD (obsessive compulsive disorder): Status: Acute Code(s): F42.9 - Obsessive-compulsive disorder, unspecified (4) ADHD: Status: Acute Code(s): F90.9 - Attention-deficit hyperactivity disorder, unspecified type (5) Autism: Status: Acute Code(s): F84.0 - Autistic disorder (6) Excoriation (skin-picking) disorder: Status: Acute Code(s): F42.4 - Excoriation (skin-picking) disorder (7) Borderline personality disorder: Status: Acute Code(s): F60.3 - Borderline personality disorder Plan 25 yo female, self presented to [facility] [place] re-establishment of psychotropic medications. Pt reports being without meds for 1.5 weeks. Reports paranoia, insomnia, irrational decision making and thoughts of self harm along with SI- tells CARE team of thoughts to slice her stomach. Also reports lability of mood- episodes of hysterical laughter/crying. HI+ without specific person-toward anyone. Hx of diagnosis of ADHD, ASD, Borderline Personality Disorder, Bipolar Disorder. Post neuropsychiatric exam in 2021 reports diagnosis of antisocial personality disorder/schizotypal personality disorder. 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 Pt reports she has been taking Mirtazapine 60 mg, Fluoxetine 20 mg and Quetiapine 50 mg with ongoing manic cycling. She reports sx of ADHD, intrusive OCD sx, excoriation/skin picking sx are all present when this regime is ongoing. States she moved to [place] at the end of December and has been attempting to secure insurance which has been a slowed process. She began to feel changes, however thought it may be her response to the seasonal changes. Symptoms increased she became more impulsive with tasks and purchases, she dyed her hair black, had changes in sleep (was sleeping 11pm-10am, now 4am-8am), poor appetite, poor self care, vivid intrusive thoughts to harm herself, bite herself, to cut her stomach, these becoming so prominent she would not allow herself in the kitchen as she worried she would stab herself. 03/07: Continue regime Flu shot today Discharge planning. 03/09: DC 03/10 Plan: Admit, CV, 15 minute checks Encourage milieu participation Diagnostics as needed Collateral contact Continue current regime Olanzapine 5 mg HS trial for mood, excoriation sx Discharge planning Reason for continued inpatient stay Substantial Risk for: stable for discharge Time Spent With Patient Time: Total time managing care of this patient today ____ minutes.
[2025-03-09 20:00] VITALS: BP 167/77; PULSE 63; RESP 16; TEMP 36.4; O2SAT 100
[2025-03-10 08:00] VITALS: BP 119/71; PULSE 68; RESP 16; TEMP 37.1; O2SAT 99
[2025-03-10] MEDS: Calcium Oyster Shell Elemental 500 MG TABLET PO (09:02)
--- NOTE | 2025-03-10 09:53 | P.DS_ITS ---
DS: Providers Provider Date of Service: 03/10/25 Date of admission: 03/05/25 15:55 Date of discharge: 03/10/25 Primary care physician: Nilo Physician Admitting clinician: Dawn Mccabe Attending physician on admission: Juan Manuel Mckenzie Attending physician on discharge: Juan Manuel Mckenzie Discharging clinician: Dawn Mccabe DS: Diagnosis Discharge Diagnosis (1) PTSD (post-traumatic stress disorder): Status: Acute (2) Bipolar disorder: Status: Acute (3) OCD (obsessive compulsive disorder): Status: Acute (4) ADHD: Status: Acute (5) Autism: Status: Acute (6) Excoriation (skin-picking) disorder: Status: Acute (7) Borderline personality disorder: Status: Acute DS: Medications Discharge Medications Home Medications: Previous Rx's ?Medication ?Instructions ?Recorded acetaminophen 325 mg tablet 650 mg (2 x 325 mg) PO Q6H PRN 03/09/25 Headache/Pain, Scale 1-10 #0 tabs amlodipine 2.5 mg tablet 2.5 mg PO DAILY #30 tabs 10/26 calcium carbonate 500 mg PO TID #90 tabs 03/09 cyclobenzaprine 10 mg tablet 10 mg PO TID PRN Fibromya lgia #30 03/09/25 tabs ferrous sulfate 325 mg (65 mg 325 mg PO DAILY@0800 #30 tabs 03/09/25 iron) tablet fluoxetine 20 mg capsule (Prozac) 20 mg PO DAILY #30 c aps 03/09/25 hydroxyzine pamoate 50 mg capsule 100 mg (2 x 50 mg) P O BEDTIME #60 03/09/25 caps melatonin 3 mg tablet 9 mg (3 x 3 mg) PO BEDTIME # 90 tabs 03/09/25 mirtazapine 30 mg tablet 60 mg (2 x 30 mg) PO BEDTIME #60 03/09/25 tabs multivitamin 1 tab PO DAILY@0800 #30 tabs 03/09/25 norethindrone acetate 1.5 1 tab PO DAILY #30 tabs 10/26 mg-ethinyl estradiol 30 mcg tablet (Microgestin) olanzapine 10 mg tablet 10 mg PO BEDTIME #30 tabs pregabalin 75 mg capsule 75 mg PO BID #60 caps quetiapine 50 mg tablet (Seroquel) 50 mg PO DAILY #30 tabs 03/09/25 Mental Status Exam Mental Status Exam Patient Appearance: Appropriate Patient Orientation: Person, Place, Time and Situation Level of Consciousness: Alert Patient Behavior: Appropriate, Talkative, Cooperative and Good Eye Contact Mood Description: Appropriate Affect Description: Appropriate Patient Cognition Impaired: No Ability to Follow Directions: Good Speech Pattern: Spontaneous Speech Memory Description: Intact Hallucinations: None Delusions: Not Present Thought Process: Intact and Goal Oriented Thought Content: positive for Intact, positive for Goal Oriented and positive for Suicidal Ideation (denies) Depressive Symptoms: Thoughts of /Suicide (denies) Judgement: Good Data Data Completed and Pending Completed studies during hospitalization [Text1]: 03/04/25 03/05/25 03/06/25 23:21 00:08 07:59 WBC 7.2 RBC 4.74 Hgb 13.7 Hct 41.5 MCV 87.6 MCH 28.9 MCHC 33.0 RDW 13.1 Plt Count 250 MPV 9.9 Immature Gran % (Auto) 0.3 Neut % (Auto) 47.6 Lymph % (Auto) 45.1 H [place] % (Auto) 6.0 Eos % (Auto) 0.6 Baso % (Auto) 0.4 Lymph # (Auto) 3.2 [place] # (Auto) 0.4 Eos # (Auto) 0.0 Baso # (Auto) 0.0 Abs Immat Gran (auto) 0.02 Absolute Neuts (auto) 3.4 Absolute Nucleated RBC 0.000 Nucleated RBC % (auto) 0.0 Sodium 141 140 Potassium 3.5 3.5 Chloride 109 H 107 Carbon Dioxide 24 25 Anion Gap 12 12 BUN 11 10 Creatinine 0.74 0.68 Estim Creat Clear Calc 182.0 197.7 Estimated GFR > 60 > 60 Random Glucose 105 98 Estimat Average Glucose 97 Hemoglobin A1c % 5.0 Calcium 8.6 9.2 D Total Bilirubin 0.3 0.6 AST 26 24 ALT 32 H 30 Alkaline Phosphatase 93 99 Total Protein 6.3 L 6.7 Albumin 3.9 4.2 Triglycerides 105 Cholesterol 172 LDL Cholesterol, Calc 99 HDL Cholesterol 52 TSH 2.71 Beta HCG, Quant < 2 Urine Color Dark Yellow Urine Appearance Cloudy Urine pH 5.5 Ur Specific [place] >= 1.030 H Urine Protein 30 (1+) H Urine Glucose (UA) Negative Urine Ketones Trace Urine Blood Negative Urine Nitrite Negative Ur Leukocyte Esterase Negative Urine RBC 0-2 Urine WBC 0-5 Ur Squamous Epith Cells >20 Calcium Oxalate Crystal Present Urine Bacteria 4+ Hyaline Casts 3-5 Salicylates < 5.0 L Urine Opiates Screen Not Detected Ur Buprenorphine Scrn Not Detected Ur Oxycodone Screen Not Detected Urine Methadone Screen Not Detected Urine Fentanyl Screen Not Detected Acetaminophen 15 Ur Barbiturates Screen Not Detected Ur Phencyclidine Scrn Not Detected Ur Amphetamines Screen Not Detected U Benzodiazepines Scrn Not Detected Urine Cocaine Screen Not Detected U Marijuana (THC) Screen POSITIVE H Ethyl Alcohol < 10 DS: Summary Hospital Course Hospital Course: Admission to adult psychiatry for exacerbation of bipolar disorder. Hx of PTSD, autism, OCD, excoriation disorder, ADHD, borderline personality disorder, hypertension. Pt reports a recent move from [place] to [place] to attend school. She stopped medicines 1.5 weeks ago and experienced paranoia, insomnia, labile mood, impulsive sx, SI, self harm thoughts. She presented to re-establish her regime. She submitted a three day notice, re-established her regime with some changes to target symptoms. She utilized the milieu to strengthen coping skills and returns home to out patient providers with [facility]. Status at Discharge Functional status at discharge: independent ambulation Overall status at discharge: patient is progressing back to baseline Time Spent with Patient Time attestation: Total time managing care of this patient today ____ minutes. Time spent: Less than 30 minutes Discharge Plan Discharge Anticipated Discharge Date/Time: 03/10/25 11:00 Patient Disposition: Home, Self-Care Discharge Diagnosis: PTSD Autism Bipolar Disorder Obsessive Compulsive Disorder Excoriation Disorder ADHD Borderline Personality Disorder HTN Referrals: [facility] Partial Hospitalization Program [Other] - 03/22/25 8:00 am Referral Note: The building is located close to parking lot [address] and behind the [employer] red trailer. Look for the red [place] building that has the Partial Hospitalization Program. The is the intake and the following day you will start the program. You are on the cancellation list so they will call you if a sooner appointment becomes available. [facility] Intake w Naomy Joyner [Other] - 03/13/25 8:30 am Referral Note: Please let them know if you would like to have continued sessions in [facility]. [facility] Psychiatry with Dionicio Melendez [Other] - 12/10/25 9:00 am [facility] Sub Use Case Management w Svetlana Kim [Other] - 03/13/25 8:00 am Referral Note: To note Stacy does not have a substance use disorder and she denies having any sub use problem. Physician,None [Primary Care Provider, Medical] - 1 Week Discharge Medications: New cyclobenzaprine 10 mg Tablet 10 mg PO TID PRN (Reason: Fibromyalgia) Qty: 30 0RF acetaminophen 325 mg Tablet 650 mg PO Q6H PRN (Reason: Headache/Pain, Scale 1-10) Qty: 0 0RF olanzapine 10 mg Tablet 10 mg PO BEDTIME Qty: 30 0RF melatonin 3 mg Tablet 9 mg PO BEDTIME Qty: 90 0RF pregabalin 75 mg capsule 75 mg PO BID Qty: 14 4RF Continued multivitamin Tablet 1 tab PO DAILY@0800 Qty: 30 0RF hydroxyzine pamoate 50 mg Capsule 100 mg PO BEDTIME Qty: 60 0RF norethindrone ac-eth estradiol [Microgestin .09/30 ()] 1.5-30 mg-mcg Tablet 1 tab PO DAILY Qty: 30 0RF amlodipine 2.5 mg Tablet 2.5 mg PO DAILY Qty: 30 0RF calcium carbonate 500 mg calcium (1,250 mg) Tablet 500 mg PO TID Qty: 90 0RF mirtazapine 30 mg Tablet 60 mg PO BEDTIME Qty: 60 0RF ferrous sulfate 325 mg (65 mg iron) Tablet 325 mg PO DAILY@0800 Qty: 30 0RF fluoxetine [Prozac] 20 mg Capsule 20 mg PO DAILY Qty: 30 0RF pregabalin 75 mg Capsule 75 mg PO BID Qty: 60 0RF quetiapine [Seroquel] 50 mg Tablet 50 mg PO DAILY Qty: 30 0RF Discharge Orders: Discharge Order (Routine); Ordered 03/10/25 Ordered By: Dawn Mccabe Diet: Advance to usual diet Activity on Discharge: As tolerated Stand Alone Forms: Patient Portal Discharge page, Community Support Print Language: [place] Care Plan Goals: Mood and Behavioral Stabilization Health Concerns: Mood and Behavioral Stabilization Plan of Treatment: Attend scheduled appointments Take medications as directed Call/Return as needed Assessment: Denies SI,HI,AH,VH No sx of acute monae or psychosis Pt agrees with plan of care Discharge Date/Time: 03/10/25 11:45
== END 2025-03-10 11:45 | disposition home or self-care (01) | DRG 885 ==
LOC: HO.ED 03-05 14:14 → HO.PM5 03-05 16:22
PROVIDERS: Physician Assistant Medical; Admitting Provider Psychiatry & Neurology Psychiatry; Emergency Provider Emergency Medicine; Visit Provider Clinical Nurse Specialist Psychiatric/Mental Health, Adult
DX: F31.9 Bipolar disorder, unspecified (principal); R45.851 Suicidal ideations; F90.9 Attention-deficit hyperactivity disorder, unspecified type; F84.0 Autistic disorder; F42.4 Excoriation (skin-picking) disorder; I10 Essential (primary) hypertension; F60.3 Borderline personality disorder; F42.9 Obsessive-compulsive disorder, unspecified; M79.7 Fibromyalgia; Z23 Encounter for immunization; Z98.84 Bariatric surgery status; Z87.891 Personal history of nicotine dependence; Z79.899 Other long term (current) drug therapy
CPT/HCPCS: 36415; 80053; 80061; 80143; 80179; 80307; 81001; 83036; 84443; 84702; 85025; 90656; 99285; S9485

== ENCOUNTER → 2025-03-05 15:55 | Outpatient (BNV) | payer OTHER, SELFPAY | PROVIDERS: Admitting Provider Psychiatry & Neurology Psychiatry; Emergency Provider Emergency Medicine; Visit Provider Clinical Nurse Specialist Psychiatric/Mental Health, Adult | DX: F43.10 Post-traumatic stress disorder, unspecified (principal); F31.9 Bipolar disorder, unspecified; F42.9 Obsessive-compulsive disorder, unspecified; F90.9 Attention-deficit hyperactivity disorder, unspecified type; F84.0 Autistic disorder; F42.4 Excoriation (skin-picking) disorder; F60.3 Borderline personality disorder | CPT/HCPCS: 90792; 99232 ==

== ENCOUNTER → 2025-03-05 15:55 | Outpatient (BNV) | payer MEDICARE, SELFPAY | PROVIDERS: Admitting Provider Psychiatry & Neurology Psychiatry; Emergency Provider Emergency Medicine; Visit Provider Nurse Practitioner Family | DX: I10 Essential (primary) hypertension (principal) | CPT/HCPCS: 99221 ==

== ENCOUNTER 2025-03-22 08:31 | Emergency (ER) | payer MEDICARE, SELFPAY ==
[2025-03-22 08:35] VITALS: BP 141/63; PULSE 89; RESP 18; TEMP 36.1; O2SAT 100; BMI 46.8
--- NOTE | 2025-03-22 09:09 | ED.ALLEREA ---
HPI - Allergic Reaction General Chief complaint: Allergic Reaction Stated complaint: Med reaction, feels like throat is closing Time Seen by Provider: 03/22/25 08:58 Source: patient, RN notes reviewed and old records reviewed Mode of arrival: ambulatory Limitations: no limitations History of Present Illness ED Provider: JIGNESH Gonzalez HPI narrative: 25-year-old female with medical history of borderline personality disorder, autism, ADHD, OCD, bipolar disorder, PTSD presents to the ED due to 2 days of total body rash. Patient reports she noticed a rash 2 days ago starting on the left forearm with mildly itchy, raised red bumps. Patient reports yesterday the rash began to spread to bilateral thighs, she took a dose of benadryl and applied A&D ointment to the rash. Patient states she woke up this morning with a sensation of itchy mouth, throat/ chest tightness and noticed the rash had gotten worst, and has spread to bilateral upper extremities, chest, abdomen, back, scalp and face and is mildly itchy. Patient reports she was seen recently in the ED and admitted to [facility] Psychiatry from 03/06 to 03/10 for manic episode and was started on zyprexa during this time. Patient reports this has been the only change to her routine, she denies new cosmetics, lotions, soaps, detergents, contact with new animals. Denies chest pain, fevers, chills, headaches, visual changes, abdominal pain, nausea, vomiting, diarrhea, lightheadedness, dizziness Related Data Previous Rx's ?Medication ?Instructions ?Recorded acetaminophen 325 mg tablet 650 mg (2 x 325 mg) PO Q6H PRN 03/09/25 Headache/Pain, Scale 1-10 #0 tabs amlodipine 2.5 mg tablet 2.5 mg PO DAILY #30 tabs 03/09/25 calcium carbonate 500 mg PO TID #90 tabs 03/09/25 cyclobenzaprine 10 mg tablet 10 mg PO TID PRN Fibromyalgia #30 03/09/25 tabs ferrous sulfate 325 mg (65 mg 325 mg PO DAILY@0800 #30 tabs 03/09/25 iron) tablet fluoxetine 20 mg capsule (Prozac) 20 mg PO DAILY #30 caps 03/09/25 hydroxyzine pamoate 50 mg capsule 100 mg (2 x 50 mg) PO BEDTIME #60 03/09/25 caps melatonin 3 mg tablet 9 mg (3 x 3 mg) PO BEDTIME #90 tabs 03/09/25 mirtazapine 30 mg tablet 60 mg (2 x 30 mg) PO BEDTIME #60 03/09/25 tabs multivitamin 1 tab PO DAILY@0800 #30 tabs 03/09/25 norethindrone acetate 1.5 1 tab PO DAILY #30 tabs 03/09/25 mg-ethinyl estradiol 30 mcg tablet (Microgestin) olanzapine 10 mg tablet 10 mg PO BEDTIME #30 tabs 03/09/25 pregabalin 75 mg capsule 75 mg PO BID #60 caps 03/09/25 quetiapine 50 mg tablet (Seroquel) 50 mg PO DAILY #30 tabs 03/09/25 pregabalin 75 mg capsule 75 mg PO BID #14 caps 03/10/25 albuterol sulfate 90 mcg/actuation 2 inh inhalation Q4-6H PRN 03/22/25 aerosol inhaler (Ventolin HFA) shortness of breath or wheezing #6.7 grams prednisone 20 mg tablet 20 mg PO BID 4 days #8 tabs 03/22/25 Allergies Allergy/AdvReac Type Severity Reaction Status Date / Time NSAIDS (Non-Steroidal Allergy Gastrointestinal Verified 03/22/25 08:37 Anti-Inflamma Upset tree nut Allergy Anaphylaxis Verified 03/22/25 08:37 amoxicillin AdvReac Anaphylaxis Verified 03/22/25 08:37 lamotrigine AdvReac Anaphylaxis Verified 03/22/25 08:37 lithium AdvReac Anaphylaxis Verified 03/22/25 08:37 Penicillins (PCN) AdvReac Anaphylaxis Verified 03/22/25 08:37 Review of Systems Review of Systems: Yes all other systems are reviewed and are negative PMFSH Past Medical History Attestation statement: The following information was validated with the patient. Source: old records reviewed and nursing notes reviewed Medical History Borderline personality disorder Excoriation (skin-picking) disorder Autism ADHD OCD (obsessive compulsive disorder) Bipolar disorder PTSD (post-traumatic stress disorder) Social History Social History Household Members: Friend(s) Household Members Other:: 2 friends Housing: Apartment Do you presently have visiting nurse or other home services: No Patient Tobacco Use Status: Former Tobacco user Smoked in Last 30 Days: No e-Cigarette/Vaping Use: Never Used Use of substances other than those prescribed or required for medical reasons: Yes Substance Use Type: Marijuana Substance Use Frequency: Socially Last Used Substance: Days (ago) Any prior treatment program specific to substance use: No Advance Directives: No Advance Directives Information Provided: Yes Patient : No service: No Sexual orientation: Unable to collect Physical Exam ED Vital Signs: Vital Signs - 24 hr 03/22/25 08:35 03/22/25 09:48 Temperature 96.9 F Pulse Rate 89 65 Respiratory Rate 18 16 Blood Pressure 141/63 H Pulse Oximetry 100 100 Oxygen Delivery Method Room Air Room Air BMI result Body Mass Index 46.8 GENERAL APPEARANCE: ?AxOx4, generally well-appearing, no acute distress. HEENT: ?NC, AT. MMM. EOMI, clear conjunctiva, oropharynx clear, uvula midline, no uvular edema, no tonsillar edema, no sublingual edema or submental edema. There are very small red raised urticaria on the back of the neck into the scalp region. Patient is speaking in full clear sentences, tolerating oral secretions NECK: ?Supple without lymphadenopathy.? No stiffness or restricted ROM. HEART:? Normal rate and regular rhythm, normal S1/S2, no m/r/g LUNGS:? CTAB, moving air well, no inspiratory or expiratory wheeze noted, no labored/increased work of breathing, no accessory muscle use noted, no pursed lip breathing ABDOMEN: ?Soft, nontender, nondistended with good bowel sounds heard. BACK: No CVAT, no obvious deformity. EXTREMITIES: ?Without cyanosis, clubbing or edema. NEUROLOGICAL: ?Grossly nonfocal. Alert and oriented, moving all 4 extremities. Observed to ambulate with normal gait. Skin: ?Warm and dry. B/L thighs, B/L UE, chest with urticaria, mild warmth over the rash. No bullae present, Nikolsky sign negative. Medications Administered Discontinued Medications Generic Name Dose Route Start Last Admin Trade Name Freq PRN Reason Stop Dose Admin Diphenhydramine HCl 25 mg 03/22/25 09:09 03/22/25 09:45 Diphenhydramine Hcl 50 Mg/Ml Vial IVPUSH 03/22/25 09:10 25 mg ONCE ONE Administration Famotidine 20 mg 03/22/25 09:09 03/22/25 09:45 Famotidine/Pf 20 Mg/2 Ml Vial IVPUSH 03/22/25 09:10 20 mg ONCE ONE Administration Methylprednisolone Sodium Succinate 60 mg 03/22/25 09:09 03/22/25 09:44 Methylprednisolone Sod Succ 125 Mg/2 Ml Vial IVPUSH 03/22/25 09:10 60 mg ONCE ONE Administration Medical Decision Making Medical Decision Making MDM Narrative: 25-year-old female with medical history of borderline personality disorder, autism, ADHD, OCD, bipolar disorder, PTSD presents to the ED due to 2 days of red raised mildly itchy and warm rash that erupted over B/L thighs, upper extremities, chest, and on neck. Denies any change in her normal routine or new personal hygiene products. Only change was starting zyprexa due to inpatient hospitalization from 03/06-03/10. VS on initial observation-BP 141/63, pulse rate of 89, respiratory rate of 18, afebrile with oral temp of 96.9?, O2 saturation 100% on room air. On physical exam oropharynx clear, uvula midline, no uvular edema, no tonsilar edema, no sublingual edema or submental edema. There are very small red raised urticaria on the back of the neck into the scalp region. Patient is speaking in full clear sentences, tolerating oral secretions. CTAB, moving air well, no inspiratory or expiratory wheeze noted, no labored/increased work of breathing, no accessory muscle use noted, no pursed lip breathing. Skin is Warm and dry. B/L thighs, B/L UE, chest with urticaria, mild warmth over the rash. No bullae present, Nikolsky sign negative. Plan: Labs - Medicated with 20 mg IV famotidine, 25 mg IV Benadryl, 60 mg IV Solu-Medrol and watch in the department for 2 hours for rebound symptoms Labs without leukocytosis/leukopenia, no evidence of anemia, no electrolyte abnormalities. Patient presenting with urticaria rash that began 2 days ago. Patient is afebrile,no facial edema, no lymphadenopathy, LFTs WNL, rashes not painful, no blisters or mucosal involvement, Nikolsky sign negative, oropharynx clear, no mucosal edema, increased work of breathing, tolerating oral secretions- less likely DRESS syndrome, SJS/TENS, anaphylaxis. Patient without any new hygiene routines, no new personal hygiene products, cosmetics, detergents- less likely contact dermatits. Only change was adding Zyprexa approximately 2 weeks ago while she was inpatient for manic episode. At this time I believe it is best to discontinue the Zyprexa due to urticartic rash most likely from new medication. While having this conversation with the patient patient is somewhat hesitant as she feels that this medication help to regulate her. Patient has follow up appointment with [facility] on Thursday. I reached out to nurse practitioner Dawn Mccabe who was the patients provider while the patient was admitted admitted who agrees Zyprexa should be stopped, and can follow up with PHP on Thursday to assess for new medication when the rash subsides. Patient symptoms have improved significantly after being medicated, patient has been in the department for 2 hours without hypoxia, tachypnea, difficulty breathing or rebound symptoms. Patient does not have primary care doctor at this time. I counseled patient to follow up with PHP on Thursday, and strict return precautions. Patient is in agreement with the plan. Differential Diagnosis Differential Diagnoses: The differential diagnosis associated with the presentation includes Anaphylaxis DRESS TENS SJS contact dermatitis Urticaria Admission/Observation Consideration of admission/observation: Escalation of care including admission/observation considered Consult Healthcare Provider Management of the patient was discussed with: Behavioral Health Provider (Dawn Mccabe) I reached out to costumer Danw Rodriguez who agrees zyprexa I could be discontinued at this time, a new medication can be discussed when patient follows up with PHP on Thursday. Lab Data MDM Lab Attestation statement: I reviewed the patient's lab results. 03/22/25 09:20 03/22/25 09:20 Labs: Lab Results 03/22/25 Range/Units 09:20 WBC 9.4 (4.8-10.8) X10*3/uL RBC 4.81 (4.20-5.50) X10*6/uL Hgb 13.9 (12.0-16.0) g/dl Hct 43.0 (37.0-47.0) % MCV 89.4 (80.0-98.0) fL MCH 28.9 (27.0-33.0) pg MCHC 32.3 (31.0-35.0) g/dl RDW 13.3 (11.0-16.0) % Plt Count 256 (160-400) X10*3/uL MPV 9.6 (9.4-12.3) fL Immature Gran % (Auto) 0.3 (0.0-0.4) % Neut % (Auto) 72.3 (45-73) % Lymph % (Auto) 19.5 L (20-40) % Scurry % (Auto) 7.4 (2-11) % Eos % (Auto) 0.3 (0-4) % Baso % (Auto) 0.2 (0-2) % Lymph # (Auto) 1.8 (1.2-4.9) X10*3/uL Scurry # (Auto) 0.7 (0.1-1.2) X10*3/uL Eos # (Auto) 0.0 (0.0-0.4) X10*3/uL Baso # (Auto) 0.0 (0.0-0.2) X10*3/uL Abs Immat Gran (auto) 0.03 (0.00-0.03) X10*3/uL Absolute Neuts (auto) 6.8 (2.0-8.3) x10*3/uL Absolute Nucleated RBC 0.000 (0.0-0.012) X10*3/uL Nucleated RBC % (auto) 0.0 (0.0-0.2) /100WBC Sodium 140 (135-145) mmol/L Potassium 3.6 (3.3-5.1) mmol/L Chloride 109 H (96-108) mmol/L Carbon Dioxide 25 (22-29) mmol/L Anion Gap 10 L (12-20) BUN 13 (9-16) mg/dL Creatinine 0.64 (0.5-1.4) mg/dL Estim Creat Clear Calc 210.9 Estimated GFR > 60 Random Glucose 87 (60-115) mg/dL Calcium 8.6 D (8.4-10.2) mg/dL Magnesium 1.9 (1.6-2.6) mg/dL Total Bilirubin 0.3 (0.0-1.0) mg/dL AST 19 (5-31) U/L ALT 24 (0-31) U/L Alkaline Phosphatase 76 (39-117) U/L Total Protein 6.2 L (6.5-8.0) g/dL Albumin 3.8 (3.5-5.0) g/dL External Record Review External record reviewed: Inpatient record, Office record, Outpatient record and Prior outpatient labs Chronic Conditions Patient?s care impacted by: Other (Borderline personality disorder, bipolar disorder, autism, ADHD, OCD, PTSD) Discharge Plan Discharge Clinical Impression: Urticaria medicamentosa Patient Disposition: Home, Self-Care Instructions: Urticaria (ED) Additional Instructions: You were evaluated in the ED due to red rash over the body. Your blood work today was normal. Your rash is most consistent with a drug eruption urticaria. I spoke with your mental health provider who saw you while you were inpatient at [facility] RADIOLOGIST Dawn Rodriguez who agreed your zyprexa should be discontinued at this time. Please follow up with [facility] program on Thursday and discuss the rash so a new medication can be started. You are being discharged with a 4 day course of 40 mg prednisone for rash, and refill of your albuterol inhaler. Please return to the emergency department if the rash returns, if you experience itching/burning/swelling of the mouth, lips, throat, tongue, shortness of breath, difficulty breathing, lightheadedness, dizziness, abdominal pain, nausea, vomiting or any new/worsening/concerning symptoms. Prescriptions: New prednisone 20 mg tablet 20 mg PO BID 4 Days Qty: 8 0RF albuterol sulfate [Ventolin HFA] 90 mcg/actuation HFA aerosol inhaler 2 inh inhalation Q4-6H PRN (Reason: shortness of breath or wheezing) Qty: 6.7 0RF No Action cyclobenzaprine 10 mg Tablet 10 mg PO TID PRN (Reason: Fibromyalgia) Qty: 30 0RF acetaminophen 325 mg Tablet 650 mg PO Q6H PRN (Reason: Headache/Pain, Scale 1-10) Qty: 0 0RF olanzapine 10 mg Tablet 10 mg PO BEDTIME Qty: 30 0RF melatonin 3 mg Tablet 9 mg PO BEDTIME Qty: 90 0RF multivitamin Tablet 1 tab PO DAILY@0800 Qty: 30 0RF hydroxyzine pamoate 50 mg Capsule 100 mg PO BEDTIME Qty: 60 0RF norethindrone ac-eth estradiol [Microgestin .09/30 ()] 1.5-30 mg-mcg Tablet 1 tab PO DAILY Qty: 30 0RF amlodipine 2.5 mg Tablet 2.5 mg PO DAILY Qty: 30 0RF calcium carbonate 500 mg calcium (1,250 mg) Tablet 500 mg PO TID Qty: 90 0RF mirtazapine 30 mg Tablet 60 mg PO BEDTIME Qty: 60 0RF ferrous sulfate 325 mg (65 mg iron) Tablet 325 mg PO DAILY@0800 Qty: 30 0RF fluoxetine [Prozac] 20 mg Capsule 20 mg PO DAILY Qty: 30 0RF pregabalin 75 mg Capsule 75 mg PO BID Qty: 60 0RF quetiapine [Seroquel] 50 mg Tablet 50 mg PO DAILY Qty: 30 0RF pregabalin 75 mg capsule 75 mg PO BID Qty: 14 4RF Print Language: Czech
[2025-03-22 09:27] LABS: MANUAL DIFF FLAG NO
[2025-03-22 09:30] LABS: Hematocrit 43.0 % (37.0-47.0); Hemoglobin 13.9 g/dl (12.0-16.0); Imm Gran Abs Auto 0.03 X10*3/uL (0.00-0.03); Imm Gran Pct Auto 0.3 % (0.0-0.4); Lymphocytes Absolute Auto 1.8 X10*3/uL (1.2-4.9); Mean Corpuscular HGB Conc 32.3 g/dl (31.0-35.0); Mean Corpuscular Hemoglobin 28.9 pg (27.0-33.0); Mean Corpuscular Volume 89.4 fL (80.0-98.0); NRBC Abs Auto 0.000 X10*3/uL (0.0-0.012); NRBC Pct Auto 0.0 /100WBC (0.0-0.2); Platelet Count 256 X10*3/uL (160-400); Red Blood Count 4.81 X10*6/uL (4.20-5.50); White Blood Count 9.4 X10*3/uL (4.8-10.8)
[2025-03-22 09:48] VITALS: PULSE 65; RESP 16; O2SAT 100
[2025-03-22 09:49] LABS: Alanine Aminotransferase 24 U/L (0-31); Albumin Level 3.8 g/dL (3.5-5.0); Alkaline Phosphatase 76 U/L (39-117); Anion Gap 10 (12-20); Aspartate Amino Transferase 19 U/L (5-31); Blood Urea Nitrogen 13 mg/dL (9-16); Calcium 8.6 mg/dL (8.4-10.2); Carbon Dioxide 25 mmol/L (22-29); Chloride 109 mmol/L (96-108); Creatinine Clr Calc Pharmacy 210.9; Estimated Glomerular Filt Rate > 60; Magnesium 1.9 mg/dL (1.6-2.6); Potassium 3.6 mmol/L (3.3-5.1); Sodium 140 mmol/L (135-145); Total Protein 6.2 g/dL (6.5-8.0)
--- NOTE | 2025-03-22 09:49 | PC.NURSE ---
NAD, medicated as charted. on cell phone. NO diff breathing or SOB. Denies pain but reports tightness in chest. 100% on room air
[2025-03-22 11:35] VITALS: BP 141/63; PULSE 65; RESP 16; TEMP 36.1; O2SAT 100
== END 2025-03-22 11:37 | disposition home or self-care (01) ==
PROVIDERS: Emergency Provider Emergency Medicine
DX: L50.8 Other urticaria (principal); F60.9 Personality disorder, unspecified; F84.0 Autistic disorder; F31.9 Bipolar disorder, unspecified
CPT/HCPCS: 36415; 80053; 83735; 85025; 96374; 96375; 99284; J1200; J1308; J2919

== ENCOUNTER 2025-04-03 12:15 | Outpatient (RCR) | payer OTHER, SELFPAY ==
[2025-03-28 09:36] VITALS: BMI 46.5
--- NOTE | 2025-03-28 10:09 | PC.ADMIT ---
Patient is a 25 year old single female who was referred to [facility] by [facility] inpatient behavioral health unit. According to [facility] records patient moved from [place] to [place] and lost her providers and insurance as a result. Patient was without medications for 1.5 weeks and her mental health decompensated experiencing insomnia, paranoia, irrational decision making, and thoughts of self harm to slice her stomach . See inpatient records for more information. Patient stated she lives with, My two close friends Patient stated they are very supportive. They are the reason I got help. Patient identified supports stating, Jc, boyfriend Amy, my friends. Asked if hospitalization was helpful patient stated, It was very helpful. It did help a lot. Gave me better insight as to what I need and helped me get on track. Patient is alert and oriented x4. She is calm and cooperative. Thoughts are clear and logical. She presented with anxious mood and affect. She denied SI, no HI, no thoughts to self harm, no paranoia. Reports that she is sleeping well. She was given a copy of her safety plan if needed. Medications updated with patient and patients medication discharge list from [facility] inpatient unit. Patient reports she had to stop Olanzapine medication that she stated was started in the hospital as she had an allergic reaction. Reports she went to [facility] ER with c/o all over body rash on 03/22/25 and has not taken Olanzapine since. Dr. Myrick is aware.
[2025-03-28 13:05] VITALS: BP 122/85; PULSE 74; TEMP 36.8
--- NOTE | 2025-03-29 20:42 | P.HPPSP_ITS ---
HPI Date of Service: 03/28/25 Chief Complaint: PTSD Sources of Information: patient interviewed, chart reviewed and crisis/core team assessment reviewed HPI Narrative: Patient is a 25-year-old female with a history of PTSD, ADHD, ASD, Borderline Personality Disorder, Bipolar Disorder who is stepping down from [facility] M[facility] after presenting with mixed manic-like symptoms, high anxiety, thoughts to self harm. She was discharged on March 10. She had report reportedly stopped her medications and got all disorganized and was admitted. She reports that she is against stopped her medications since last Thursday due to a rash. 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, diagnosed with borderline personality age 15, bipolar disorder age 18 Hx of residential treatment age 11-13- 6 months, post argument with mom, after a 3 month in pt, then 2 years of special schooling while living at home Hx of suicide attempts in youth, age 12 attempt to hang herself Hx of tylenol OD-reports no medical care post OD Hx of attempted hanging OP: None currently Trials: Risperdal, Klonopin, Wellbutrin, Ativan, Sertraline, Buspirone, Nal trexone, Lamictal, Danby, Trileptal, Intuniv CURRENT MEDICATIONS: Hydroxyzine 50 mg every day and 100 mg at night Duloxetine 20 mg BID mirtazapine 60 mg QD Quetiapine 100 mg cyclobenzaprine 10 mg t.i.d. PRN pregabalin 75 mg b.i.d. 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 Pt lived with her mother and uncle. Only child. High school graduate Receives social security survivor benefits Has been homeless prior to moving to [place] Trauma History: loss of father Diagnostics Vital Signs (24Hr): BMI result Body Mass Index 46.5 Meds/Allergies Meds Home Medications ?Medication ?Instructions ?Recorded ?Confirmed ?Type spironolactone 25 mg tablet 25 mg PO DAILY 03/29/25 History Allergies Allergies Allergy/AdvReac Type Severity Reaction Status Date / Time NSAIDS (Non-Steroidal Allergy Gastrointestinal Verified 03/22/25 08:37 Anti-Inflamma Upset olanzapine (From Zyprexa) Allergy All over Verified 03/28/25 09:32 body rash. tree nut Allergy Anaphylaxis Verified 03/22/25 08:37 amoxicillin AdvReac Anaphylaxis Verified 03/22/25 08:37 lamotrigine AdvReac Anaphylaxis Verified 03/22/25 08:37 lithium AdvReac Anaphylaxis Verified 03/22/25 08:37 Penicillins (PCN) AdvReac Anaphylaxis Verified 03/22/25 08:37 Mental Status Exam Mental Status Exam Narrative: Patient Appearance: Appropriate Patient Orientation: Person, Place, Time and Situation Level of Consciousness: Alert Patient Behavior: Appropriate, Talkative, Cooperative and Good Eye Contact Mood Description: Apprehensive Affect Description: Apprehensive Patient Cognition Impaired: No Ability to Follow Directions: Good Speech Pattern: Spontaneous Speech Memory Description: Intact Hallucinations: None Delusions: Not Present Thought Process: Intact and Goal Oriented Thought Content: positive for Intact, positive for Goal Oriented and negative for Suicidal Ideation (denies) Depressive Symptoms: Thoughts of /Suicide (denies) Judgement: Assessment & Plan Assessment & Plan (1) Bipolar disorder: Status: Acute Code(s): F31.9 - Bipolar disorder, unspecified (2) Borderline personality disorder: Status: Acute Code(s): F60.3 - Borderline personality disorder (3) OCD (obsessive compulsive disorder): Status: Acute Code(s): F42.9 - Obsessive-compulsive disorder, unspecified (4) Autism: Status: Acute Code(s): F84.0 - Autistic disorder Plan Admit to [facility] VS reviewed on admission: afebrile, BP 122/85;?74 bpm continue regular medications for now Routine lab work as indicated EKG, routine for baseline QTc for medication considerations as indicated UDS as indicated [facility] reviewed Continue to monitor as per protocol Patient educated on: diagnosis, medication risk/benefits and therapeutic strategies Informed Consent: understands Reason for continued partial hosp. stay Substantial Risk for: inability to function, rapid decompensation and med/psych decompensation Certification I certify that partial hospital treatment is medically necessary due to the symptoms and problems resulting from the patient's mental illness and the failure to treat the patient at the partial hospital level of care would likely result in the patient requiring inpatient psychiatric care which could not be prevented at a less intensive level of care. Time Spent With Patient Time: Total time managing care of this patient today _90___ minutes.
--- NOTE | 2025-04-03 17:51 | HO.PHPPROGNO ---
Subjective Subjective Date of Service: 04/03/25 Reason For Visit: PTSD Interim History: pt?was a step-down from [facility] and?carries diagnoses for Bipolar Disorder, Borderline Personality DIsorder, OCD, Autism and is on a complicated medication regime including 2-3 antipsychotics and is a limited historian.? She has been requesting to be started on treatment for ADHD since I met her last week and again today.? She explicitly suggested being start on a stimulant a few times last week, but given the complicated nature of her medication regime, we discussed other treatment options.? She is on 2 medications that already?lower blood pressure (amlodipine, spironolactone)? guanfacine did not feel prudent; but given that she has tolerated antidepressants in the past, and is currently on low-dose fluoxetine, I did not feel it was unreasonable to offer Strattera. For adults (and children >70 mg), start dose for Strattera is 40 mg, however given?her history of serotonin syndrome on high doses of antidepressants in the past, I suggested we start at 10 mg daily and if tolerated, she could increase the dose by 10 mg q 2 days, which would have taken a minimum of 8 days before even arriving at the start dose of Strattera (assuming there were no issues).? We reviewed signs/symptoms of serotonin syndrome which the patient was familiar with. I wrote out the dosing schedule on a paper for her because patient indicated that she needed?directions very clearly written out. She appeared to understand the?directions for taking the medications as we reviewed them and the rationale for starting Strattera. I also let her know if she was responding well to Strattera, we could even lower the dose of fluoxetine if we felt room was needed or to mitigate potential for serotonin symptoms if she felt that was necessary.? Our encounter today lasted 20-25 min and was overall congenial and uneventful.? Mental Status Exam Mental Status Exam Narrative: Patient Appearance: Appropriate Patient Orientation: Person, Place, Time and Situation Level of Consciousness: Alert Patient Behavior: Appropriate, Talkative, Cooperative and Good Eye Contact Mood Description: Apprehensive Affect Description: Apprehensive Patient Cognition Impaired: No Ability to Follow Directions: Good Speech Pattern: Spontaneous Speech Memory Description: Intact Hallucinations: None Delusions: Not Present Thought Process: Intact and Goal Oriented Thought Content: positive for Intact, positive for Goal Oriented and negative for Suicidal Ideation (denies) Depressive Symptoms: Thoughts of /Suicide (denies) Judgement: Patient Appearance: Appropriate Patient Orientation: Person, Place and Time Level of Consciousness: Awake and Alert Patient Behavior: Appropriate Mood Description: Anxious Affect Description: Calm and Constricted Ability to Follow Directions: Good Speech Pattern: Clear and Appropriate Hallucinations: None Delusions: Not Present Thought Process: Intact and Linear Thought Content: positive for Goal Oriented (relevant to stressors, namely complaints around focus/attention, denies hopelessness or SI. Denies AI or HI. Denies AH or VH. No paranoid or delusional content elicited.) Judgement: Good Diagnostics Vital Signs (24Hr): BMI result Body Mass Index 46.5 Assessment & Plan Assessment & Plan (1) Bipolar disorder: Status: Acute Code(s): F31.9 - Bipolar disorder, unspecified (2) Borderline personality disorder: Status: Acute Code(s): F60.3 - Borderline personality disorder (3) OCD (obsessive compulsive disorder): Status: Acute Code(s): F42.9 - Obsessive-compulsive disorder, unspecified (4) Autism: Status: Acute Code(s): F84.0 - Autistic disorder Plan continue PHP start Strattera 10 mg qd (increase by 10 mg q 2 days as tolerated until reach 40 mg/day) continue other medications continue to monitor Patient educated on: diagnosis and medication risk/benefits Informed Consent: understands Reason for contiued partial hosp. stay Substantial Risk for: med/psych decompensation Certification I certify that partial hospital treatment is medically necessary due to the symptoms and problems resulting from the patient's mental illness and the failure to treat the patient at the partial hospital level of care would likely result in the patient requiring inpatient psychiatric care which could not be prevented at a less intensive level of care. Total time managing care of this patient today __30__ minutes. Discharge Plan Discharge Attending provider: Judit Kahn Medications: New aripiprazole 5 mg tablet 5 mg PO DAILY Qty: 14 0RF atomoxetine 10 mg capsule 40 mg PO QAM Qty: 40 0RF Continued acetaminophen 325 mg Tablet 650 mg PO Q6H PRN (Reason: Headache/Pain, Scale 1-10) Qty: 0 0RF melatonin 3 mg Tablet 9 mg PO BEDTIME Qty: 90 0RF multivitamin Tablet 1 tab PO DAILY@0800 Qty: 30 0RF hydroxyzine pamoate 50 mg Capsule 100 mg PO BEDTIME Qty: 60 0RF norethindrone ac-eth estradiol [Microgestin 1.5/30 (21)] 1.5-30 mg-mcg Tablet 1 tab PO DAILY Qty: 30 0RF calcium carbonate 500 mg calcium (1,250 mg) Tablet 500 mg PO TID Qty: 90 0RF ferrous sulfate 325 mg (65 mg iron) Tablet 325 mg PO DAILY@0800 Qty: 30 0RF spironolactone 25 mg Tablet 25 mg PO DAILY Rx Instructions: Patient stated she is currently on this medication. It was not on her discharge list. Last filled in January 2025 for a 90 day supply. cyclobenzaprine 10 mg Tablet 10 mg PO TID PRN (Reason: Fibromyalgia) Qty: 45 0RF amlodipine 2.5 mg Tablet 2.5 mg PO DAILY Qty: 30 0RF mirtazapine 30 mg Tablet 60 mg PO BEDTIME 15 Days Qty: 30 0RF fluoxetine [Prozac] 20 mg Capsule 20 mg PO DAILY Qty: 14 0RF pregabalin 75 mg capsule 75 mg PO BID Qty: 30 0RF albuterol sulfate [Ventolin HFA] 90 mcg/actuation HFA aerosol inhaler 2 inh inhalation Q4-6H PRN (Reason: shortness of breath or wheezing) Qty: 6.7 0RF Changed quetiapine [Seroquel] 50 mg Tablet 50 - 100 mg PO DAILY Qty: 30 0RF Discontinued olanzapine 10 mg Tablet 10 mg PO BEDTIME Qty: 30 0RF Rx Instructions: PATIENT IS NO LONGER TAKING THIS MEDICATION D/T ALLERGY OF WHOLE BODY RASH. DR. KAHN IS AWARE. prednisone 20 mg tablet 20 mg PO BID 4 Days Qty: 8 0RF Stand Alone Forms: Patient Portal Discharge page Print Language: [place]ian
--- NOTE | 2025-04-03 21:52 | P.EN_ITS ---
Event Note Date of Service: 04/03/25 Event Note: This afternoon, in response to the aforementioned complaint (where patient apparently was concerned about the dose being raised too quickly) I reached out by phone to speak with the patient (at 3:30 pm) but was not allowed to speak with patient directly because a person identified as patient's roommate and advocate ( August ) stated that patient did not want to speak with me. When I indicated I was unsure I was allowed to speak her,? patient identified herself as being in the room for the call,?and was consenting to this typewriter operator automatic speaking directly with her roommate, who was immediately took on a very combative tone, stating she was angry that the patient was being started on a medication with the dose being increased too rapidly, and also stated that the patient did not feel heard.? I reviewed what we went over previously, as well as hand-written directions given to?patient. I also reiterated that patient is under no obligation to start this medication if she has since changed her mind about taking it or does not?feel comfortable doing?so, and that I was only trying to address patient's?expressed concerns about untreated ADHD and had initiated treatment?upon patient's wish. It sounds as though there was some frustration around patient not having treated on a stimulant ordered, but given her history of being able to tolerate low dose antidepressants (and no history of previous stimulant trials)? I tried to explain the rationale for this decision and that we had indeed started the dose of Strattera on a far lower dose than is typically prescribed.? Patient's roommate says that patient nonetheless?does not want to return to [facility] tomorrow and will go seek treatment elsewhere. I informed patient (via roommate) that I would need to cancel the order, since I would not be able to follow up with her on the new medication since she plans to disc harge. Patient's roommate expressed understanding this but indicated that patient was still not open to speaking with me as she was feeling unheard . I apologized again for any misunderstanding, and reiterated that I was truly unaware of there being any gaps in our communication at any point during our earlier conversation, nor was I aware of the patient having any reluctance or confusion?around starting the Strattera.? Time Spent With Patient Time: Total time managing care of this patient today __20__ minutes.
--- NOTE | 2025-04-04 08:25 | HO.PHP ---
PHP staff member reached out to Stacy due to her insurance being ineligible. PHP staff left a VM stating that her insurance is ineligible and she is wondering if she has a new insurance that she could get an authorization for. [facility] staff member encouraged Stacy to return her phone call. [facility] staff is waiting on a call back.
--- NOTE | 2025-04-04 08:27 | HO.PHP ---
PHP staff member received a VM from Stacy voicing that she does have a new insurance and to contact her back for the information. Stacy also mentioned in the VM that she spoke to Dr. Myrick yesterday around discontinuing from the program and she said she will no longer be attending the program. PHP staff member did reach back out to Stacy and left a VM encouraging her to contact her back. PHP staff member is waiting on a phone call with updated insurance information.
--- NOTE | 2025-04-04 10:22 | PC.NURSE ---
Patient reports that [facility] is helping her with finding a new PCP.
== END 2025-04-03 23:59 | disposition home or self-care (01) ==
LOC: HO.PHPA 12:15
PROVIDERS: Visit Provider Psychiatry & Neurology Psychiatry
DX: F31.9 Bipolar disorder, unspecified (principal); F60.3 Borderline personality disorder; F42.9 Obsessive-compulsive disorder, unspecified; F84.0 Autistic disorder; F43.10 Post-traumatic stress disorder, unspecified; Z91.51 Personal history of suicidal behavior; Z79.899 Other long term (current) drug therapy
CPT/HCPCS: 90791; 90853

== ENCOUNTER → 2025-04-03 12:15 | Outpatient (BNV) | payer OTHER, SELFPAY | PROVIDERS: Visit Provider Psychiatry & Neurology Psychiatry | DX: F31.9 Bipolar disorder, unspecified (principal); F60.3 Borderline personality disorder; F42.9 Obsessive-compulsive disorder, unspecified; F84.0 Autistic disorder | CPT/HCPCS: 90792 ==